=== PATIENT | female | born 1990 | race Caucasian/White ===

== ENCOUNTER → 2021-07-23 15:14 | Outpatient (BNVA) | payer MEDICAID, SELFPAY | PROVIDERS: PCP Registered Nurse Community Health; Visit Provider Surgery Vascular Surgery | DX: I83.11 Varicose veins of right lower extremity with inflammation (principal) | CPT/HCPCS: 99212 ==

== ENCOUNTER 2021-12-10 07:27 | Outpatient (REF) | payer MEDICAID, SELFPAY ==
[2021-12-10 11:27] LABS: MANUAL DIFF FLAG NO
[2021-12-10 11:39] LABS: Basophils Percent Auto 0.5 % (0-2); Eosinophils Absolute Auto 0.1 X10*3/uL (0.0-0.4); Eosinophils Percent Auto 1.5 % (0-4); Hematocrit 43.1 % (37.0-47.0); Hemoglobin 13.5 g/dl (12.0-16.0); Imm Gran Abs Auto 0.03 X10*3/uL (0.00-0.03); Imm Gran Pct Auto 0.4 % (0.0-0.4); Lymphocytes Absolute Auto 1.9 X10*3/uL (1.2-4.9); Lymphocytes Percent Auto 23.5 % (20-40); Mean Corpuscular HGB Conc 31.3 g/dl (31.0-35.0); Mean Corpuscular Hemoglobin 28.3 pg (27.0-33.0); Mean Corpuscular Volume 90.4 fL (80.0-98.0); Mean Platelet Volume 10.6 fL (9.4-12.3); Monocytes Absolute Auto 0.4 X10*3/uL (0.1-1.2); Monocytes Percent Auto 5.3 % (2-11); Neutrophils Absolute Auto 5.5 x10*3/uL (2.0-8.3); Neutrophils Percent Auto 68.8 % (45-73); Platelet Count 308 X10*3/uL (160-400); Red Blood Count 4.77 X10*6/uL (4.20-5.50); Red Cell Distribution Width 12.9 % (11.0-16.0); White Blood Count 8.1 X10*3/uL (4.8-10.8)
[2021-12-10 11:52] LABS: Alanine Aminotransferase 10 U/L (0-31); Albumin Level 3.9 g/dL (3.5-5.0); Alkaline Phosphatase 54 U/L (39-117); Anion Gap 12 (12-20); Aspartate Amino Transferase 10 U/L (5-31); Bilirubin Total 0.5 mg/dL (0.0-1.0); Blood Urea Nitrogen 12 mg/dL (9-16); Calcium 9.5 mg/dL (8.4-10.2); Carbon Dioxide 25 mmol/L (22-29); Chloride 108 mmol/L (96-108); Estimated Glomerular Filt Rate > 60; Glucose Random 103 mg/dL (60-115); Potassium 3.8 mmol/L (3.3-5.1); Sodium 141 mmol/L (135-145); Total Protein 6.3 g/dL (6.5-8.0)
[2021-12-10 12:16] LABS: Lithium 0.49 mmol/L (0.60-1.20)
[2021-12-10 12:21] LABS: Free T4 (Free Thyroxine) 0.96 ng/dL (0.71-1.85)
== END 2021-12-10 07:28 | disposition home or self-care (01) ==
LOC: HO.HMGCLDS 07:27
PROVIDERS: Visit Provider Nurse Practitioner Psychiatric/Mental Health
DX: F31.9 Bipolar disorder, unspecified (principal); Z79.899 Other long term (current) drug therapy
CPT/HCPCS: 36415; 80053; 80178; 84439; 84443; 85025

== ENCOUNTER 2022-01-23 07:05 | Outpatient (REF) | payer BC, MEDICAID, SELFPAY ==
[2022-01-23 11:15] LABS: MANUAL DIFF FLAG NO
[2022-01-23 11:20] LABS: Basophils Absolute Auto 0.1 X10*3/uL (0.0-0.2); Basophils Percent Auto 0.6 % (0-2); Eosinophils Absolute Auto 0.2 X10*3/uL (0.0-0.4); Eosinophils Percent Auto 1.8 % (0-4); Hematocrit 41.6 % (37.0-47.0); Hemoglobin 13.3 g/dl (12.0-16.0); Imm Gran Abs Auto 0.02 X10*3/uL (0.00-0.03); Imm Gran Pct Auto 0.2 % (0.0-0.4); Lymphocytes Absolute Auto 1.9 X10*3/uL (1.2-4.9); Lymphocytes Percent Auto 21.5 % (20-40); Mean Corpuscular Volume 90.8 fL (80.0-98.0); Mean Platelet Volume 10.4 fL (9.4-12.3); Monocytes Absolute Auto 0.4 X10*3/uL (0.1-1.2); Monocytes Percent Auto 4.2 % (2-11); Neutrophils Absolute Auto 6.4 x10*3/uL (2.0-8.3); Neutrophils Percent Auto 71.7 % (45-73); Platelet Count 321 X10*3/uL (160-400); Red Blood Count 4.58 X10*6/uL (4.20-5.50); Red Cell Distribution Width 13.3 % (11.0-16.0)
[2022-01-23 12:02] LABS: Lithium 0.52 mmol/L (0.60-1.20)
[2022-01-23 12:04] LABS: Alanine Aminotransferase 11 U/L (0-31); Albumin Level 3.7 g/dL (3.5-5.0); Alkaline Phosphatase 53 U/L (39-117); Anion Gap 9 (12-20); Aspartate Amino Transferase 10 U/L (5-31); Bilirubin Total 0.4 mg/dL (0.0-1.0); Blood Urea Nitrogen 7 mg/dL (9-16); Calcium 9.3 mg/dL (8.4-10.2); Carbon Dioxide 25 mmol/L (22-29); Chloride 109 mmol/L (96-108); Estimated Glomerular Filt Rate > 60; Glucose Fasting 110 mg/dL (60-99); Sodium 139 mmol/L (135-145); Total Protein 5.9 g/dL (6.5-8.0)
[2022-01-23 12:07] LABS: Free T4 (Free Thyroxine) 0.88 ng/dL (0.71-1.85); Thyroid Stimulating Hormone 1.19 uIU/mL (0.32-4.0)
== END 2022-01-23 07:06 | disposition home or self-care (01) ==
LOC: HO.HMGCLDS 07:05
PROVIDERS: Visit Provider Nurse Practitioner Psychiatric/Mental Health
DX: Z51.81 Encounter for therapeutic drug level monitoring (principal); F31.9 Bipolar disorder, unspecified; Z79.899 Other long term (current) drug therapy
CPT/HCPCS: 36415; 80053; 80178; 84439; 84443; 85025

== ENCOUNTER 2022-05-12 12:07 | Outpatient (REF) | payer BC, SELFPAY ==
--- NOTE | ~2022-05-12 | XR_ITS ---
EXAMINATION: XR LUMBOSACRAL SPINE CLINICAL INFORMATION: Pain COMPARISON: None TECHNIQUE: Three views of the lumbosacral spine. FINDINGS: The vertebral bodies and posterior elements are normal. The disc spaces are preserved and the vertebral alignment is normal. The paraspinal soft tissues are normal. XR/XR lumbar spine 2-3V IMPRESSION: Unremarkable examination.
--- NOTE | ~2022-05-12 | XR_ITS ---
EXAMINATION: XR KNEE, LEFT CLINICAL INFORMATION: Pain COMPARISON: None TECHNIQUE: Four views of the left knee. FINDINGS: Bone alignment is normal. No fracture or dislocation is seen. There is a small osteophyte at the lateral patellofemoral joint. Joint spaces are otherwise normal. There is no joint effusion. XR/XR knee LT 4V IMPRESSION: Mild degenerative changes at the patellofemoral joint.
== END 2022-05-12 12:08 | disposition home or self-care (01) ==
LOC: HO.XRAY 12:07
PROVIDERS: Visit Provider Registered Nurse Community Health
DX: M25.562 Pain in left knee (principal); M54.50 Low back pain, unspecified
CPT/HCPCS: 72100; 73564

== ENCOUNTER 2022-11-14 07:16 | Outpatient (REF) | payer BC, SELFPAY ==
[2022-11-14 11:48] LABS: Lithium 0.49 mmol/L (0.60-1.20)
== END 2022-11-14 07:17 | disposition home or self-care (01) ==
LOC: HO.HMGCLDS 07:16
PROVIDERS: PCP Registered Nurse Community Health; Visit Provider Nurse Practitioner Psychiatric/Mental Health
DX: F31.9 Bipolar disorder, unspecified (principal); Z79.899 Other long term (current) drug therapy
CPT/HCPCS: 36415; 80178

== ENCOUNTER 2023-06-24 14:56 | Outpatient (REF) | payer BC, SELFPAY ==
[2023-06-24 16:31] LABS: Estimated Average Glucose 97 mg/dL
[2023-06-24 16:38] LABS: Alanine Aminotransferase 13 U/L (0-31); Alkaline Phosphatase 82 U/L (39-117); Anion Gap 13 (12-20); Aspartate Amino Transferase 13 U/L (5-31); Bilirubin Total 0.2 mg/dL (0.0-1.0); Blood Urea Nitrogen 8 mg/dL (9-16); Calcium 9.3 mg/dL (8.4-10.2); Carbon Dioxide 26 mmol/L (22-29); Chloride 107 mmol/L (96-108); Cholesterol 230 mg/dL (<200); Estimated Glomerular Filt Rate > 60; Glucose Random 91 mg/dL (60-115); HDL Cholesterol 43 mg/dL (>40); LDL Cholesterol Calculated 160 mg/dL (<100); Potassium 3.5 mmol/L (3.3-5.1); Sodium 142 mmol/L (135-145); Total Protein 6.6 g/dL (6.5-8.0); Triglycerides 139 mg/dL (<150)
== END 2023-06-24 14:57 | disposition home or self-care (01) ==
LOC: HO.HHCL 14:56
PROVIDERS: Visit Provider General Practice
DX: E11.9 Type 2 diabetes mellitus without complications (principal)
CPT/HCPCS: 36415; 80053; 80061; 83036

== ENCOUNTER 2023-07-07 08:00 | Outpatient (REF) | payer BC, SELFPAY ==
--- NOTE | ~2023-07-07 | US_ITS ---
EXAMINATION: US LOWER EXTREMITY VENOUS (REFLUX EXAM), BILATERAL CLINICAL INDICATION: Varicose veins COMPARISON: None. TECHNIQUE: Color flow triplex imaging and compression Doppler was performed to evaluate both the deep and the superficial systems bilaterally. To evaluate the superficial system, the examination was performed in the upright position. Color-flow Doppler ultrasound and compression ultrasound were utilized. In addition, maneuvers were utilized to demonstrate reflux. FINDINGS: 1. DEEP VENOUS ULTRASOUND OF THE RIGHT LOWER EXTREMITY: Common Femoral Vein: Compressible, normal respiratory variation and augmented flow. Femoral Vein: Compressible, normal color flow and augmentation. Popliteal Vein: Compressible, normal augmentation. Deep Reflux: There is no evidence of reflux in the deep system in either the common femoral vein or the popliteal vein. There is no evidence of a Elias's cyst. 2. SUPERFICIAL ULTRASOUND WITH DOPPLER OF RIGHT LOWER EXTREMITY: GREAT SAPHENOUS VEIN: Saphenofemoral Junction: 0.8 cm; Reflux: 0 ms Proximal Thigh: 0.5 cm; Reflux: 0 ms Mid Thigh: 0.4 cm; Reflux: 2476 ms Above Knee: 0.4 cm; Reflux: 1304 ms At Knee: 0.4 cm; Reflux: 0 ms Below Knee: 0.3 cm; Reflux: 3204 ms Mid Calf: 0.3 cm; Reflux: 0 ms Ankle: 0.3 cm; Reflux: 0 ms DUPLICATED MEDIAL GREAT SAPHENOUS VEIN: Proximal: 0.4 cm; Reflux: 0 ms DUPLICATED LATERAL GREAT SAPHENOUS VEIN: Proximal: 0.5 cm; Reflux: 0 ms Distal: 0.6 cm; Reflux: 3508 ms SMALL SAPHENOUS VEIN: Proximal: 0.5 cm; Reflux: 0 ms Distal: 0.6 cm; Reflux: 3508 ms VEIN OF GIACOMINI: Size: NA Reflux: NA PERFORATORS: Location: Mid calf Size: 0.2-0.3cm Reflux: NA VARICOSITIES: Location: Numerous varicose veins in the thigh and calf all measuring over 3 mm Size: 0.3-0.7cm Reflux: almost all have reflux 1464-3384ms 3. DEEP VENOUS ULTRASOUND OF THE LEFT LOWER EXTREMITY: Common Femoral Vein: Compressible, normal respiratory variation and augmented flow. Femoral Vein: Compressible, normal color flow and augmentation. Popliteal Vein: Compressible, normal augmentation. Deep Reflux: Reflux in the common femoral vein at 3176ms. There is no evidence of a Elias's cyst. 4. SUPERFICIAL ULTRASOUND WITH DOPPLER OF LEFT LOWER EXTREMITY: GREAT SAPHENOUS VEIN: Saphenofemoral Junction: 1.2 cm; Reflux: 1888 ms Proximal Thigh: 0.8 cm; Reflux: 0 ms Mid Thigh: 0.4 cm; Reflux: 3472 ms Above Knee: 0.4 cm; Reflux: 0 ms At Knee: 0.3 cm; Reflux: 0 ms Below Knee: 0.3 cm; Reflux: 0 ms Mid Calf: 0.2 cm; Reflux: 2788 ms Ankle: 0.3 cm; Reflux: 1028 ms DUPLICATED MEDIAL GREAT SAPHENOUS VEIN: Proximal: 0.4 cm; Reflux: 0 ms DUPLICATED LATERAL GREAT SAPHENOUS VEIN: Proximal: 0.7 cm; Reflux: 3296 ms Distal: 0.6 cm; Reflux: 3284 ms SMALL SAPHENOUS VEIN: Proximal: 0.2 cm; Reflux: 0 ms Distal: 0.2 cm; Reflux: 3392 ms VEIN OF GIACOMINI: Size: NA Reflux: NA PERFORATORS: Location: Multiple calf perforators Size: 0.3 cm Reflux: 1844 ms Location: Thigh skip loader Size: 0.2 cm Reflux: NA VARICOSITIES: Location: Numerous varicose veins in the thigh and calf all measuring over 3 mm Size: 0.3-0.7cm Reflux: almost all have reflux 3220-3380ms US/US venous duplex LE BI IMPRESSION: 1. Bilateral great saphenous venous insufficiency. 2. Numerous bilateral refluxing varicose veins. 3. Reflux in the right common femoral vein.
== END 2023-07-07 08:01 | disposition home or self-care (01) ==
LOC: HO.US 08:00
PROVIDERS: PCP General Practice; Visit Provider Surgery Vascular Surgery
DX: I83.893 Varicose veins of bilateral lower extremities with other complications (principal)
CPT/HCPCS: 93970

== ENCOUNTER 2023-08-04 12:41 | Outpatient (AMB) | payer BC, SELFPAY ==
--- NOTE | 2023-08-04 12:52 | A.OFFVIS_ITS ---
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 Complaints include pain over varicosities, swelling of lower extremities, cramping, fatigue, and heaviness of the lower extremities. It has been affecting there daily activities including walking. It is noted more so in left leg. She smokes 1 cigarette daily and is a nondiabetic. She had actually seen us back in July of 2021 and had not gotten venous insufficiency testing at that time with us. Patient denies any previous venous surgery or injections. Patient denies any history of DVT/ PE. She does have a mother and grandmother that does have a history of DVT. She personally did not have a DVT. Patient denies any history of phlebitis. Trial of compression includes - [id number] They now present for vascular evaluation regarding their varicose veins. [facility] Medical History Obese GERD (gastroesophageal reflux disease) Bipolar disorder Asthma Review of Systems Const All systems reviewed & are unremarkable except as noted in HPI and below Reports no additional complaints ENT Reports Normal hearing present Card Denies chest pain, Denies chest pain at rest, Denies chest pain with activity and Denies pedal edema Resp Denies cough GI Denies abdominal pain Musc Denies abnormal gait, Denies muscle cramps and Denies radiating pain into limb Skin/Breast Denies skin ulcer and Denies wounds Neuro Reports Normal hearing present and Denies abnormal gait Psych Reports no additional complaints Physical Exam Vital Signs: BMI result Body Mass Index 49.9 Const General: cooperative, healthy appearing and comfortable Orientation/consciousness: oriented to person, oriented to place and oriented to time HEENT Head: Yes normal to inspection Neck Neck: Yes normal visual inspection Carotids: no bruits Chest Chest palpation & inspection: normal inspection of the chest Resp Effort & Inspection: normal respiratory effort and able to speak in complete sentences Auscultation: clear to auscultation bilaterally, no crackles, no rales, no rhonchi and no wheezes Cardio Rate: regular rate Rhythm: regular rhythm Heart sounds: S1 normal heart sound present and S2 normal heart sound present Bruits: no carotid bruits Peripheral pulses: Peripheral pulses 2+ throughout GI Inspection: Yes normal to inspection Skin Wounds: no wounds Hair: normal Neuro General: oriented to person, oriented to place and oriented to time Cranial nerves: Yes CN's II-XII intact bilaterally and Yes Normal hearing present Cognition (Neuro): normal cognition Motor exam (neuro): 5/5 motor strength present throughout Extrem Other: venous exam: Bilateral +2 edema with skin color changes General: No clubbing, No cyanosis and Yes edema Psych Appearance: grossly normal Mental Status: mental status grossly normal Speech and movement: Normal speech and movement present Results Reviewed Results Reviewed: Brief summary of venous insufficiency testing is as follows: right great saphenous vein: Positive right small saphenous vein: negative right accessory vein: none present left great saphenous vein: Positive left small saphenous vein: negative left accessory vein: none present Please note there is no evidence of any venous aneurysms or significant tortuosity Assessment & Plan Assessment & Plan (1) Varicose veins of left lower extremity with inflammation: Code(s): I83.12 - Varicose veins of left lower extremity with inflammation Plan: This patient has varicose veins with inflammation. They continue to be a source of discomfort for the patient. The patient has tried conservative treatment with compression, leg elevation and exercise program for over 3 months time. They have been compliant with all treatment. This has provided minimal relief for the patient. I do not anticipate this course of treatment will alter the underlying etiology. The patient has been scheduled for lower extremity venous treatment inclusive of --- left great saphenous vein Cyanoacralate ablation. Risks, benefits, and complications of this procedure has been disc ussed in detail with the patient including but not limited to bleeding, infection, and the development of a DVT. The patient has demonstrated a clear understanding and has consented. We will schedule the patient as soon as possible. Thank you for allowing us to participate in this patient's care. If there are any questions or concerns please do not hesitate to contact us. Coding Level of Care Code Est Pt Level 4 (69802) Diagnoses Varicose veins of left lower extremity with inflammation I83.12
[2023-08-04 12:58] VITALS: BMI 49.9
== END 2023-08-04 13:21 | disposition home or self-care (01) ==
PROVIDERS: PCP General Practice; Visit Provider Surgery Vascular Surgery
DX: I83.12 Varicose veins of left lower extremity with inflammation (principal)
CPT/HCPCS: 99214

== ENCOUNTER → 2023-08-04 12:41 | Outpatient (BNVA) | payer BC, SELFPAY | PROVIDERS: PCP General Practice; Visit Provider Surgery Vascular Surgery ==

== ENCOUNTER 2023-09-18 14:34 | Outpatient (REF) | payer BC, SELFPAY ==
[2023-09-18 16:43] LABS: Alanine Aminotransferase 18 U/L (0-31); Albumin Level 4.1 g/dL (3.5-5.0); Alkaline Phosphatase 75 U/L (39-117); Anion Gap 15 (12-20); Aspartate Amino Transferase 16 U/L (5-31); Bilirubin Total 0.3 mg/dL (0.0-1.0); Blood Urea Nitrogen 8 mg/dL (9-16); Calcium 9.6 mg/dL (8.4-10.2); Carbon Dioxide 27 mmol/L (22-29); Chloride 105 mmol/L (96-108); Estimated Glomerular Filt Rate > 60; Glucose Random 88 mg/dL (60-115); Potassium 3.8 mmol/L (3.3-5.1); Sodium 143 mmol/L (135-145); Total Protein 6.7 g/dL (6.5-8.0)
== END 2023-09-18 14:35 | disposition home or self-care (01) ==
LOC: HO.HHCL 14:34
PROVIDERS: Visit Provider General Practice
DX: I10 Essential (primary) hypertension (principal)
CPT/HCPCS: 36415; 80053

== ENCOUNTER 2023-10-09 07:26 | Outpatient (AMB) | payer BC, SELFPAY ==
[2023-10-09 07:35] VITALS: BMI 49.9
--- NOTE | 2023-10-09 07:35 | MHC.OFFVIS ---
Intake Vital Signs 10/09/23 07:35 Height 5 ft 4 in Weight 291 lb BMI 49.9 Intake Visit Reasons: Left GSV Venaseal Allergies No Known Allergies Allergy (Verified 10/09/23 07:36) [facility] Medical History Obese GERD (gastroesophageal reflux disease) Bipolar disorder Asthma Physical Exam Vital Signs: BMI result Body Mass Index 49.9 Office Procedures Vascular Office Procedure Details Details: Diagnosis: Left Leg varicose veins with inflammation Procedure: Endovenous Ablation of the left Great Saphenous Vein with VenaSeal Closure System Anesthesia: Local infiltration 5 cc, Estimated Blood Loss: min Specimen: none Duplex ultrasound was used to map out the insufficient saphenous vein, and access was determined and marked on the overlying skin. The depth and diameter of the vein(s) to be treated was documented. The patient was placed supine on the procedure table and the leg was prepped and draped using sterile technique. Ultasound guidance was again used to localize the access site. 1% lidocaine was injected as a local anesthetic in the subcutaneous tissues at the target location in the GSV in the lower leg. Using ultrasound guidance, access was gained at this location with the 19 gauge thin walled access needle and followed by introduction of a short guidewire, location confirmed with ultrasound. A small, 3 mm incision was made at the access site to allow for introduction and placement of the 7 Fr x7cm introducer/dilator. The dilator and guidewire were removed. The 0.035 guidewire from the VenaSeal kit was then introduced and positioned at the saphenofemoral junction using ultrasound guidance. The 80 cm 7 Fr introducer sheath/dilator was positioned 5cm from the saphenofemoral junction. The guidewire and dilator were removed, and the remaining sheath was flushed with sterile saline, with the syringe remaining in place prior to the next steps. The cyanoacrylate adhesive was precisely primed into the 5 F delivery catheter and this catheter/syringe combination was attached within the dispenser gun. This assembly was introduced through the 7F sheath and positioned 5 cm caudal of the saphenofemoral junction under ultrasound guidance. The steps from the IFU were followed for dispensing amounts, locations and compression times, 2 aliquots proximally with 3 minutes of compression, and 1 aliquot every 3 cm distally with 30 sec of compression along the course of the vessel. Following the last injection and compression sequence, the catheter and introducer sheath were pulled out from the access site. Hemostasis was achieved with manual compression and an adhesive bandage was applied to the incision. Ultrasound confirmed complete coaptation and closure of the treated segments of the GSV, and the absence of any DVT at the saphenofemoral junction. Treatment time was approximately 5 minutes and the vein length treated was 35 cm. The drapes were removed and the patient cleaned and prepared for discharge. Post op ultrasound check is scheduled for 48-72 hours and the patient was given written post-op instructions. 28180 - Endoven Ther Chem Adhes 1st All charges added?: Procedure code (CPT) selection complete Assessment & Plan Assessment & Plan (1) Varicose veins of left lower extremity with inflammation: Code(s): I83.12 - Varicose veins of left lower extremity with inflammation Plan: See op note Coding Level of Care Code Procedure Only Diagnoses Varicose veins of left lower extremity with inflammation I83.12 CPT Codes Details - Vascular 3: 98340 - Endoven Ther Chem Adhes 1st ([id number])
== END 2023-10-09 08:30 | disposition home or self-care (01) ==
PROVIDERS: PCP General Practice; Visit Provider Surgery Vascular Surgery
DX: I83.12 Varicose veins of left lower extremity with inflammation (principal)
CPT/HCPCS: 36482

== ENCOUNTER → 2023-10-09 07:26 | Outpatient (BNVA) | payer BC, SELFPAY | PROVIDERS: PCP General Practice; Visit Provider Surgery Vascular Surgery | DX: I83.12 Varicose veins of left lower extremity with inflammation (principal) | CPT/HCPCS: 36482 ==

== ENCOUNTER 2023-10-12 14:09 | Outpatient (REF) | payer BC, SELFPAY ==
--- NOTE | ~2023-10-12 | US_ITS ---
EXAMINATION: TRIPLEX SCANNING OF LEFT LOWER EXTREMITY; SUPERFICIAL ULTRASOUND WITH DOPPLER OF LEFT LOWER EXTREMITY CLINICAL INFORMATION: Status post Venaseal of the left great saphenous vein COMPARISON: 07/07/2023. TECHNIQUE: Color flow triplex imaging and compression Doppler were performed as well as superficial ultrasound with Doppler. FINDINGS: LEFT LOWER EXTREMITY DEEP VENOUS SYSTEM: Respiratory variation, normal compression and augmented flow are noted throughout the lower extremity. The visualized common femoral vein, femoral vein, profunda femoral vein, popliteal vein and the calf veins show no evidence of deep venous thrombosis. There is no evidence of Elias's cyst. SUPERFICIAL VENOUS SYSTEM: The great saphenous vein is occluded from the access site to 4.4 before the saphenofemoral junction. There is no extension of thrombus into the deep system. US/US venous duplex LE LT IMPRESSION: 1. No evidence of DVT. 2. Excellent appearance status post ablation of the left great saphenous vein.
== END 2023-10-12 14:10 | disposition home or self-care (01) ==
LOC: HO.US 14:09
PROVIDERS: PCP General Practice; Visit Provider Surgery Vascular Surgery
DX: M79.605 Pain in left leg (principal)
CPT/HCPCS: 93971

== ENCOUNTER 2023-10-22 12:39 | Outpatient (AMB) | payer BC, SELFPAY ==
[2023-10-22 12:54] VITALS: BMI 49.9
--- NOTE | 2023-10-22 12:54 | MHC.OFFVIS ---
Intake Vital Signs 10/22/23 12:54 Height 5 ft 4 in Weight 291 lb BMI 49.9 Intake Visit Reasons: 2 week follow up Left GSV Venaseal 10/09/23 Intake Note: 2 week follow up Left GSV Venaseal 10/09/23, pt states that her leg feels the same as it did pre-procedure but a little less itchy. Swelling has decreased, but states she does still have some large painful VV. Pt states that Right LE has a lot more large VV but wasn't as painful as the left LE Accompanied by: Self / Same As Patient Allergies No Known Allergies Allergy (Verified 10/22/23 12:59) HPI 2 week follow up Left GSV Venaseal 10/09/23 HPI Details Very pleasant 32-year-old female presents for follow-up status post left great saphenous vein ablation. She does report an improvement of that left lower extremity. She is concerned about her right lower extremity which continues to be swollen and a source of discomfort as well. She also has these large lateral thigh varicosities as well. She now presents for routine postprocedure follow-up. Of note postprocedure ultrasound was negative for DVT. [facility] Medical History (Updated 10/22/23 @ 13:47 by Mookie Mcgovern MD) Obese GERD (gastroesophageal reflux disease) Bipolar disorder Asthma Surgical History (Updated 10/22/23 @ 13:01 by WINTER Vick) Status post ablation of incompetent vein using laser (10/09/23) Social History (Updated 10/22/23 @ 13:01 by WINTER Vick) Patient Tobacco Use Status: Current someday Tobacco user Cigarettes Per Day: 1 Review of Systems Const Reports as per HPI ENT Reports no additional complaints Card Denies chest pain, Denies chest pain at rest and Denies chest pain with activity Resp Denies chest congestion and Denies cough GI Reports no additional complaints Musc Details: pain over varicosities, aching of lower extremities, swelling, cramping, heaviness and tiredness, itching Denies abnormal gait Skin/Breast Reports pruritus and Denies wounds Neuro Reports no additional complaints and Denies abnormal gait Psych Denies no additional complaints Physical Exam Vital Signs: BMI result Body Mass Index 49.9 Const General: cooperative, healthy appearing and comfortable Orientation/consciousness: oriented to person, oriented to place and oriented to time Neck Carotids: no bruits Chest Chest palpation & inspection: normal inspection of the chest and normal palpation of entire chest wall Resp Effort & Inspection: normal respiratory effort and able to speak in complete sentences Cardio Rate: regular rate Heart sounds: S1 normal heart sound present and S2 normal heart sound present Peripheral pulses: Peripheral pulses 2+ throughout GI Inspection: Yes normal to inspection Skin Other: +2 edema, large rope-like varicosities greater than 4 mm bilateral lateral thigh CEAP Classification C4 - skin color changes Ep - Etiology Primary As - superficial veins P - reflux General skin exam: dry skin Neuro General: oriented to person, oriented to place and oriented to time Extrem Right lower extremity: full ROM, normal capillary refill and edema Left lower extremity: full ROM, normal capillary refill and edema Psych Mental Status: mental status grossly normal Results Reviewed Results Reviewed: Brief summary of venous insufficiency testing is as follows: right great saphenous vein: Positive right small saphenous vein: negative right accessory vein: none present left great saphenous vein: Ablated left small saphenous vein: negative left accessory vein: none present Please note there is no evidence of any venous aneurysms or significant tortuosity Assessment & Plan Assessment & Plan (1) Varicose veins of left lower extremity with inflammation: Comment: 10/09/2023 left great saphenous vein Cyanoacralate ablation Code(s): I83.12 - Varicose veins of left lower extremity with inflammation Plan: Stable (2) Varicose veins of right lower extremity with inflammation: Code(s): I83.11 - Varicose veins of right lower extremity with inflammation Plan: This patient has varicose veins with inflammation. They continue to be a source of discomfort for the patient. The patient has tried conservative treatment with compression, leg elevation and exercise program for over 3 months time. They have been compliant with all treatment. This has provided minimal relief for the patient. I do not anticipate this course of treatment will alter the underlying etiology. The patient has been scheduled for lower extremity venous treatment inclusive of --- right great saphenous vein Cyanoacralate ablation. Risks, benefits, and complications of this procedure has been discussed in detail with the patient including but not limited to bleeding, infection, and the development of a DVT. The patient has demonstrated a clear understanding and has consented. We will schedule the patient as soon as possible. Thank you for allowing us to participate in this patient's care. If there are any questions or concerns please do not hesitate to contact us. Coding Level of Care Code Est Pt Level 4 (52369) Diagnoses Varicose veins of left lower extremity with inflammation I83.12 Varicose veins of right lower extremity with inflammation I83.11
== END 2023-10-22 13:34 | disposition home or self-care (01) ==
PROVIDERS: PCP General Practice; Visit Provider Surgery Vascular Surgery
DX: I83.12 Varicose veins of left lower extremity with inflammation (principal); I83.11 Varicose veins of right lower extremity with inflammation
CPT/HCPCS: 99214

== ENCOUNTER → 2023-10-22 12:39 | Outpatient (BNVA) | payer BC, SELFPAY | PROVIDERS: PCP General Practice; Visit Provider Surgery Vascular Surgery ==

== ENCOUNTER 2023-11-20 08:19 | Outpatient (AMB) | payer BC, SELFPAY ==
[2023-11-20 08:50] VITALS: BMI 49.9
--- NOTE | 2023-11-20 08:50 | MHC.OFFVIS ---
Intake Vital Signs 11/20/23 08:50 Height 5 ft 4 in Weight 291 lb BMI 49.9 Intake Visit Reasons: Right GSV Venaseal Accompanied by: Self / Same As Patient Allergies No Known Allergies Allergy (Verified 11/20/23 08:51) [facility] Medical History (Updated 11/20/23 @ 09:42 by Mookie Mcgovern MD) Obese GERD (gastroesophageal reflux disease) Bipolar disorder Asthma Surgical History (Updated 10/22/23 @ 13:01 by WINTER Vick) Status post ablation of incompetent vein using laser (10/09/23) Social History (Updated 10/22/23 @ 13:01 by WINTER Vick) Patient Tobacco Use Status: Current someday Tobacco user Cigarettes Per Day: 1 Physical Exam Vital Signs: BMI result Body Mass Index 49.9 Office Procedures Vascular Office Procedure Details Details: Diagnosis: Right Leg varicose veins with inflammation Procedure: Endovenous Ablation of the right Great Saphenous Vein with VenaSeal Closure System Anesthesia: Local infiltration 5 cc, Estimated Blood Loss: min Specimen: none Duplex ultrasound was used to map out the insufficient saphenous vein, and access was determined and marked on the overlying skin. The depth and diameter of the vein(s) to be treated was documented. The patient was placed supine on the procedure table and the leg was prepped and draped using sterile technique. Ultasound guidance was again used to localize the access site. 1% lidocaine was injected as a local anesthetic in the subcutaneous tissues at the target location in the GSV in the lower leg. Using ultrasound guidance, access was gained at this location with the 19 gauge thin walled access needle and followed by introduction of a short guidewire, location confirmed with ultrasound. A small, 3 mm incision was made at the access site to allow for introduction and placement of the 7 Fr x7cm introducer/dilator. The dilator and guidewire were removed. The 0.035 guidewire from the VenaSeal kit was then introduced and positioned at the saphenofemoral junction using ultrasound guidance. The 80 cm 7 Fr introducer sheath/dilator was positioned 5cm from the saphenofemoral junction. The guidewire and dilator were removed, and the remaining sheath was flushed with sterile saline, with the syringe remaining in place prior to the next steps. The cyanoacrylate adhesive was precisely primed into the 5 F delivery catheter and this catheter/syringe combination was attached within the dispenser gun. This assembly was introduced through the 7F sheath and positioned 5 cm caudal of the saphenofemoral junction under ultrasound guidance. The steps from the IFU were followed for dispensing amounts, locations and compression times, 2 aliquots proximally with 3 minutes of compression, and 1 aliquot every 3 cm distally with 30 sec of compression along the course of the vessel. Following the last injection and compression sequence, the catheter and introducer sheath were pulled out from the access site. Hemostasis was achieved with manual compression and an adhesive bandage was applied to the incision. Ultrasound confirmed complete coaptation and closure of the treated segments of the GSV, and the absence of any DVT at the saphenofemoral junction. Treatment time was approximately 7 minutes and the vein length treated was 45 cm. The drapes were removed and the patient cleaned and prepared for discharge. Post op ultrasound check is scheduled for 48-72 hours and the patient was given written post-op instructions. 98136 - Endoven Ther Chem Adhes 1st All charges added?: Procedure code (CPT) selection complete Assessment & Plan Assessment & Plan (1) Varicose veins of right lower extremity with inflammation: Comment: 11/20/2023 - right great saphenous vein Cyanoacralate ablation Code(s): I83.11 - Varicose veins of right lower extremity with inflammation Plan: See op note Coding Level of Care Code Procedure Only Diagnoses Varicose veins of right lower extremity with inflammation I83.11 CPT Codes Details - Vascular 3: 69643 - Endoven Ther Chem Adhes 1st ([id number])
== END 2023-11-20 09:47 | disposition home or self-care (01) ==
PROVIDERS: PCP General Practice; Visit Provider Surgery Vascular Surgery
DX: I83.11 Varicose veins of right lower extremity with inflammation (principal)
CPT/HCPCS: 36482

== ENCOUNTER → 2023-11-20 08:19 | Outpatient (BNVA) | payer BC, SELFPAY | PROVIDERS: PCP General Practice; Visit Provider Surgery Vascular Surgery | DX: I83.11 Varicose veins of right lower extremity with inflammation (principal) | CPT/HCPCS: 36482 ==

== ENCOUNTER 2023-11-23 14:08 | Outpatient (REF) | payer BC, SELFPAY ==
--- NOTE | ~2023-11-23 | US_ITS ---
EXAMINATION: US VENOUS ULTRASOUND WITH DOPPLER LOWER EXTREMITY, RIGHT CLINICAL INFORMATION: Pain in right leg. Evaluate for DVT right lower extremity after right great saphenous vein RFA 11/20/22. COMPARISON: Venous insufficiency ultrasound 07/07/2023. TECHNIQUE: Ultrasound of the deep veins is performed from the hip to the calf with compression sonography and color and pulse Doppler assessment. Spectral analysis with color-flow imaging is performed. FINDINGS: There is normal venous compression and respiratory variation and augmented flow. The visualized common femoral vein, superficial femoral vein, profunda femoral vein, popliteal vein, and the trifurcation region shows no evidence of deep venous thrombosis. Postablation changes are seen in the great saphenous vein up to 4.2 cm from the SFJ. US/US venous duplex LE RT IMPRESSION: No DVT demonstrated in the right lower extremity. Postablation changes great saphenous vein as above.
== END 2023-11-23 14:09 | disposition home or self-care (01) ==
LOC: HO.US 14:08
PROVIDERS: PCP General Practice; Visit Provider Surgery Vascular Surgery
DX: M79.604 Pain in right leg (principal)
CPT/HCPCS: 93971

== ENCOUNTER 2023-12-03 14:06 | Outpatient (AMB) | payer BC, SELFPAY ==
--- NOTE | 2023-12-03 14:10 | MHC.OFFVIS ---
Intake Vital Signs 12/03/23 14:11 Height 5 ft 4 in Weight 291 lb BMI 49.9 Intake Visit Reasons: 2 week follow up Right GSV Venaseal 11/20/23 Intake Note: 2 week follow up Right GSV Venaseal 11/20/23. Right Leg feels good. Pt also has Hx of Left GSV Venaseal 10/09/23, feels good. Pt does still have large VV on outer thigh. Accompanied by: Self / Same As Patient Allergies No Known Allergies Allergy (Verified 12/03/23 14:14) HPI 2 week follow up Right GSV Venaseal 11/20/23 HPI Details Very pleasant 33-year-old female presents for follow-up status post right great saphenous vein ablation. Reports bilateral lower extremities appear to be doing significantly better since the ablation is. She does have bilateral thigh varicosities left greater than right. They continue to be a source of pain and discomfort for her. She now presents for follow-up. Of note postprocedure ultrasound was negative for DVT. [facility] Medical History Obese GERD (gastroesophageal reflux disease) Bipolar disorder Asthma Surgical History (Updated 12/03/23 @ 14:15 by WINTER Vick) S/P gastric sleeve procedure Status post ablation of incompetent vein using laser (10/09/23) Family History Mother Bipolar 1 disorder Father Type 2 diabetes mellitus Social History (Updated 12/03/23 @ 14:15 by WINTER Vick) Patient Tobacco Use Status: Former Tobacco user Cigarettes Per Day: 1 Review of Systems Const Reports as per HPI ENT Reports no additional complaints Card Denies chest pain, Denies chest pain at rest and Denies chest pain with activity Resp Denies chest congestion and Denies cough GI Reports no additional complaints Musc Details: pain over varicosities, aching of lower extremities, swelling, cramping, heaviness and tiredness, itching Denies abnormal gait Skin/Breast Reports pruritus and Denies wounds Neuro Reports no additional complaints and Denies abnormal gait Psych Denies no additional complaints Physical Exam Vital Signs: BMI result Body Mass Index 49.9 Const General: cooperative, healthy appearing and comfortable Orientation/consciousness: oriented to person, oriented to place and oriented to time Neck Carotids: no bruits Chest Chest palpation & inspection: normal inspection of the chest and normal palpation of entire chest wall Resp Effort & Inspection: normal respiratory effort and able to speak in complete sentences Cardio Rate: regular rate Heart sounds: S1 normal heart sound present and S2 normal heart sound present Peripheral pulses: Peripheral pulses 2+ throughout GI Inspection: Yes normal to inspection Skin Other: +2 edema, large rope-like varicosities greater than 4 mm bilateral lateral thighs CEAP Classification C4 - skin color changes Ep - Etiology Primary As - superficial veins P - reflux General skin exam: dry skin Neuro General: oriented to person, oriented to place and oriented to time Extrem Right lower extremity: full ROM, normal capillary refill and edema Left lower extremity: full ROM, normal capillary refill and edema Psych Mental Status: mental status grossly normal Assessment & Plan Assessment & Plan (1) Varicose veins of right lower extremity with inflammation: Comment: 11/20/2023 - right great saphenous vein Cyanoacralate ablation Code(s): I83.11 - Varicose veins of right lower extremity with inflammation Plan: Will need future microphlebectomy lateral thigh varicosities. (2) Varicose veins of left lower extremity with inflammation: Comment: 10/09/2023 left great saphenous vein Cyanoacralate ablation Code(s): I83.12 - Varicose veins of left lower extremity with inflammation Plan: This patient has varicose veins with inflammation. They continue to be a source of discomfort for the patient. The patient has tried conservative treatment with compression, leg elevation and exercise program for over 3 months time. They have been compliant with all treatment. This has provided minimal relief for the patient. I do not anticipate this course of treatment will alter the underlying etiology. The patient has been scheduled for lower extremity venous treatment inclusive of --- left leg microphlebectomy. Risks, benefits, and complications of this procedure has been discussed in detail with the patient including but not limited to bleeding, infection, and the development of a DVT. The patient has demonstrated a clear understanding and has consented. We will schedule the patient as soon as possible. Thank you for allowing us to participate in this patient's care. If there are any questions or concerns please do not hesitate to contact us. Coding Level of Care Code Est Pt Level 4 (99080) Diagnoses Varicose veins of right lower extremity with inflammation I83.11 Varicose veins of left lower extremity with inflammation I83.12
[2023-12-03 14:11] VITALS: BMI 49.9
== END 2023-12-03 14:32 | disposition home or self-care (01) ==
PROVIDERS: PCP General Practice; Visit Provider Surgery Vascular Surgery
DX: I83.11 Varicose veins of right lower extremity with inflammation (principal); I83.12 Varicose veins of left lower extremity with inflammation
CPT/HCPCS: 99214

== ENCOUNTER → 2023-12-03 14:06 | Outpatient (BNVA) | payer BC, SELFPAY | PROVIDERS: PCP General Practice; Visit Provider Surgery Vascular Surgery | DX: I83.11 Varicose veins of right lower extremity with inflammation (principal); I83.12 Varicose veins of left lower extremity with inflammation; Z98.890 Other specified postprocedural states ==

== ENCOUNTER 2023-12-18 07:48 | Outpatient (AMB) | payer BC, SELFPAY ==
--- NOTE | 2023-12-18 07:58 | MHC.OFFVISWM ---
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 Allergies No Known Allergies Allergy (Verified 12/18/23 08:01) Medication List - Last Reconciled 12/18/23 by Andrew Mo MD albuterol (refill) 90 mcg/actuation mcg inhalation aripiprazole (Abilify) 10 mg PO DAILY cholecalciferol (vitamin D3) 50 mcg PO DAILY clonazepam (Klonopin) 0.5 mg PO QDAY hydrochlorothiazide 25 mg PO DAILY lamotrigine 150 mg PO DAILY omeprazole magnesium (Prilosec OTC) 20 mg PO DAILY HPI 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 HPI Details Start time: 7.48am, End time: 8.48am ?I spent 50 minutes speaking with the patient on the phone plus an additional 10 minutes reviewing and updating records for a total of 60 minutes HPI Comments History of Present Illness Details Has developed severe GERD after the sleeve gastrectomy Previous weight loss: Pre-LSG weight: 365lbs, lowest: 240lbs) Wakes up: 5am, Sleeps: 9pm Breakfast: skips Lunch: 1pm (Falafel with cous cous, pasta) Dinner: 6pm (pasta with meatballs, pizza) Snacks: 10am (chocolate), 7-8pm (cake) Exercise: stepper at home Fluids: Coffee (2 cups/day with cream and sugar), tea: none, soda: none, juice: 2/wk, ETOH: 1/month PFSH Medical History (Updated 12/18/23 @ 08:10 by Andrew Mo MD) DJD (degenerative joint disease) Hypertension Sleep apnea treated with continuous positive airway pressure (CPAP) Anxiety Morbid obesity Obese GERD (gastroesophageal reflux disease) Bipolar disorder Asthma Surgical History (Updated 12/03/23 @ 14:15 by WINTER Vick) S/P gastric sleeve procedure Status post ablation of incompetent vein using laser (10/09/23) Family History Mother Bipolar 1 disorder Father Type 2 diabetes mellitus Social History (Updated 12/03/23 @ 14:15 by WINTER Vick) Patient Tobacco Use Status: Former Tobacco user Cigarettes Per Day: 1 Assessment & Plan Assessment & Plan (1) Morbid obesity: Code(s): E66.01 - Morbid (severe) obesity due to excess calories Plan: 1.? Plan for lap sleeve gastrectomy. If diaphragmatic or ventral hernias are present at time of surgery, these will be repaired laparoscopically as well. Risks and complications were discussed in detail including possible conversion to an open procedure, anastomotic leak, bleeding requiring transfusion, small bowel obstruction, , DVT and pulmonary embolism, cardiac, or pulmonary complications, as intermediate project manager complications such as anastomotic ulcer, insufficient weight loss and vitamin deficiencies. I emphasized the importance of close follow-up, adherence to instructions and good communication. 2. Nutritional counseling. Start with one CELEBRATE REBUILD protein (buy at [facility]'s gift shop) shake (TWO scoops in 8oz low fat unsweetened almond milk) at 6am-8am, 1 protein bar (CELEBRATE protein bars, buy at [facility]'s [employer]) at 9am-11am, another CELEBRATE REBUILD protein shake (TWO scoops in 8oz low fat unsweetened almond milk, another Celebrate bar at 12pm-2pm and 3pm-5pm, dinner at 6pm (5 forks of protein and 5 forks of salad/vegetables) AND another HALF protein bar, if needed after dinner at 8pm-9pm. So you do 2 protein shakes, 3.5 protein bars and one meal per day. Meal to include lean meat (beef, fish, pork, turkey, chicken), or eritrean yogurt, or egg whites, or beans with a salad with olive oil and fruits (berries, pears, apples, kiwi). Avoid salt, breads, potatoes, rice, pasta, desserts. 3. Each shake would be drunk slowly, like coffee in a period of 2 hours. 4. Cut each bar in 4 pieces and eat each piece in 30min ?to make each bar last 2 hours. 5. I emphasized the importance of measuring accurately the food portion and measure it when serving the food in plate 6. The meal portions include 5 full-size forks of meat and 5 full-size forks of salad. You always eat the meat portion but you can replace up to 5 forks for salad/vegetables with rice, potatoes or pasta, or a fruit ?if you like. The less you do it the better weight loss will be. 7. One full-size fork is what it can be scooped on the fork without falling aside and not what can be bit with the fork. Use regular forks like those you find in a typical restaurant. 8.? Please send me weight measurements as soon as possible and then once a week. Always include your diet and exercise plan. Alternatively come weekly at the office for weight checks and send me the measurements. 9. Start the Stepper daily for 300 calories per day. Goal is to burn 2000 calories per week on exercise, which means either 300 calories daily, or 400 calories 5 days per week, or 500 calories 4 days per week, or 650 calories 3 days per week. 10. The best choice would be to purchase a stationary bike, elliptical or treadmill at home that can track calories. Let me know if you do so I can give you an exercise plan. 11.?It is important of avoiding and for at least 18 months postoperatively and has been discussed at the infosession. 12. Goal is to lose at least 1.5-2lbs per week 13. Goal to lose 10% of your weight before surgery, which is about 29lbs. Ultimate weight goal: 265lbs before surgery 14. Please follow the diet plan exactly without any change. If you don't like something about the plan or you feel hungry you need to communicate with me so I can help you revise the plan. You should not change the plan yourself. Telehealth Telehealth Location of provider rendering services: practice address Location of patient: address on file Patient Identification confirmed using: Name, : Yes Telehealth method: voice only Patient verbally consented to treatment: Yes Patient verbally consented to billing insurance company: Yes Patient informed of any privacy concerns related to visit: Yes Minutes spent on Phone/Video with Pt.: 60 Coding Level of Care Code Tele [facility] Pt Level 5 (09500) Diagnoses Morbid obesity E66.01 Time Spent (min) 60
[2023-12-18 08:22] VITALS: BMI 50.5
== END 2023-12-18 08:49 | disposition home or self-care (01) ==
LOC: HO.HBS 07:48
PROVIDERS: PCP General Practice; Visit Provider Surgery
DX: E66.01 Morbid (severe) obesity due to excess calories (principal); Z68.43 Body mass index [BMI] 50.0-59.9, adult; Z90.3 Acquired absence of stomach [part of]; Z98.84 Bariatric surgery status
CPT/HCPCS: 99443

== ENCOUNTER → 2023-12-18 07:48 | Outpatient (BNVA) | payer BC, SELFPAY | PROVIDERS: PCP General Practice; Visit Provider Surgery ==

== ENCOUNTER 2024-01-15 08:24 | Outpatient (AMB) | payer BC, SELFPAY ==
[2024-01-15 08:51] VITALS: BMI 50.5
--- NOTE | 2024-01-15 08:51 | MHC.OFFVIS ---
Intake Vital Signs 01/15/24 08:51 Height 5 ft 4 in Weight 294 lb BMI 50.5 Intake Visit Reasons: Left Microphlebectomy Accompanied by: Self / Same As Patient Allergies No Known Allergies Allergy (Verified 01/15/24 08:52) [facility] Medical History DJD (degenerative joint disease) Hypertension Sleep apnea treated with continuous positive airway pressure (CPAP) Anxiety Morbid obesity Obese GERD (gastroesophageal reflux disease) Bipolar disorder Asthma Surgical History S/P gastric sleeve procedure Status post ablation of incompetent vein using laser (10/09/23) Family History Mother Bipolar 1 disorder Father Type 2 diabetes mellitus Social History Patient Tobacco Use Status: Former Tobacco user Cigarettes Per Day: 1 Physical Exam Vital Signs: BMI result Body Mass Index 50.5 Office Procedures Vascular Office Procedure Details Details: Diagnosis: Left Leg varicose veins with inflammation Procedure: Left leg Microphlebectomy Anesthesia: Local Infiltration 20 cc, Tumescent: 0 cc. Varicose veins were marked in the standing position on the left leg and the patient was then placed in the supine position. The left lower extremity was prepared and draped to allow knee flexion in the sterile field. The patient had large superficial varicose veins with significant symptoms of pain. It was therefore determined to perform microphlebectomies of the clusters of varicose veins. The patient had bulging varicose veins which were previously marked in the standing position. A small stab incision was made longitudinally directly overlying the varicose vein in the calf and the varicose vein was grasped with a hemostat aided by a vein hook. It was then dissected as far proximally and distally as possible and avulsed. A total of 22 stab incisions were made and the procedure of stab phlebectomies was repeated 22 times. Hemostasis was checked and stab incision sites were closed with steri-strips and sterile dressing was given with gauze and krilex wrap followed by an kiesha bandage. There were no complications and blood loss was minimal. Post-Op instructions were given and a follow-up appointment was recommended. [id number] - Stab Phlebectomy >20 All charges added?: Procedure code (CPT) selection complete Assessment & Plan Assessment & Plan (1) Varicose veins of left lower extremity with inflammation: Comment: 10/09/2023 left great saphenous vein Cyanoacralate ablation 01/15/2024 left leg microphlebectomy Code(s): I83.12 - Varicose veins of left lower extremity with inflammation Plan: See op note Coding Level of Care Code Procedure Only Diagnoses Varicose veins of left lower extremity with inflammation I83.12 CPT Codes Details - Vascular 6: 24422 - Stab Phlebectomy >20 ([id number])
== END 2024-01-15 09:57 | disposition home or self-care (01) ==
PROVIDERS: PCP General Practice; Visit Provider Surgery Vascular Surgery
DX: I83.12 Varicose veins of left lower extremity with inflammation (principal)
CPT/HCPCS: 37766

== ENCOUNTER → 2024-01-15 08:24 | Outpatient (BNVA) | payer BC, SELFPAY | PROVIDERS: PCP General Practice; Visit Provider Surgery Vascular Surgery | DX: I83.12 Varicose veins of left lower extremity with inflammation (principal) | CPT/HCPCS: 37766 ==

== ENCOUNTER 2024-02-09 15:36 | Outpatient (AMB) | payer BC, SELFPAY ==
--- NOTE | 2024-02-09 15:49 | MHC.OFFVIS ---
Intake Visit Reasons: 2 week follow up Left Micro 01/15/24 Intake Note: Patient presents for follow up s/p left micro performed on 01/15/24. Patient states she has bruising but no pain. Accompanied by: Self / Same As Patient Allergies No Known Allergies Allergy (Verified 02/09/24 15:50) [facility] HPI 2 week follow up Left Micro 01/15/24: Details: Very pleasant 33-year-old female presents for follow-up status post left lower extremity microphlebectomy. Doing extremely well postoperatively. Some mild phlebitis in the thigh but other than that no real complaints. She is now concerned about her right lower extremity. Has been a source of pain and discomfort for her. [facility] Medical History DJD (degenerative joint disease) Hypertension Sleep apnea treated with continuous positive airway pressure (CPAP) Anxiety Morbid obesity Obese GERD (gastroesophageal reflux disease) Bipolar disorder Asthma Surgical History S/P gastric sleeve procedure Status post ablation of incompetent vein using laser (10/09/23) Family History Mother Bipolar 1 disorder Father Type 2 diabetes mellitus Social History Patient Tobacco Use Status: Former Tobacco user Cigarettes Per Day: 1 Review of Systems Const Reports as per HPI ENT Reports no additional complaints Card Denies chest pain, Denies chest pain at rest and Denies chest pain with activity Resp Denies chest congestion and Denies cough GI Reports no additional complaints Musc Details: pain over varicosities, aching of lower extremities, swelling, cramping, heaviness and tiredness, itching Denies abnormal gait Skin/Breast Reports pruritus and Denies wounds Neuro Reports no additional complaints and Denies abnormal gait Psych Denies no additional complaints Physical Exam Const General: cooperative, healthy appearing and comfortable Orientation/consciousness: oriented to person, oriented to place and oriented to time Neck Carotids: no bruits Chest Chest palpation & inspection: normal inspection of the chest and normal palpation of entire chest wall Resp Effort & Inspection: normal respiratory effort and able to speak in complete sentences Cardio Rate: regular rate Heart sounds: S1 normal heart sound present and S2 normal heart sound present Peripheral pulses: Peripheral pulses 2+ throughout GI Inspection: Yes normal to inspection Skin Other: +2 edema, large rope-like varicosities greater than 4 mm right thigh and calf CEAP Classification C4 - skin color changes Ep - Etiology Primary As - superficial veins P - reflux General skin exam: dry skin Neuro General: oriented to person, oriented to place and oriented to time Extrem Right lower extremity: full ROM, normal capillary refill and edema Left lower extremity: full ROM, normal capillary refill and edema Psych Mental Status: mental status grossly normal Assessment & Plan Assessment & Plan (1) Varicose veins of left lower extremity with inflammation: Comment: 10/09/2023 left great saphenous vein Cyanoacralate ablation 01/15/2024 left leg microphlebectomy Code(s): I83.12 - Varicose veins of left lower extremity with inflammation Category: Medical Plan: Doing well status post left leg microphlebectomy. Will treat right leg (2) Varicose veins of right lower extremity with inflammation: Comment: 11/20/2023 - right great saphenous vein Cyanoacralate ablation Code(s): I83.11 - Varicose veins of right lower extremity with inflammation Category: Medical Plan: This patient has varicose veins with inflammation. They continue to be a source of discomfort for the patient. The patient has tried conservative treatment with compression, leg elevation and exercise program for over 3 months time. They have been compliant with all treatment. This has provided minimal relief for the patient. I do not anticipate this course of treatment will alter the underlying etiology. The patient has been scheduled for lower extremity venous treatment inclusive of --- right leg microphlebectomy. Risks, benefits, and complications of this procedure has been discussed in detail with the patient including but not limited to bleeding, infection, and the development of a DVT. The patient has demonstrated a clear understanding and has consented. We will schedule the patient as soon as possible. Thank you for allowing us to participate in this patient's care. If there are any questions or concerns please do not hesitate to contact us. Coding Level of Care Code Est Pt Level 4 (96236) Diagnoses Varicose veins of left lower extremity with inflammation I83.12 Varicose veins of right lower extremity with inflammation I83.11
== END 2024-02-09 16:05 | disposition home or self-care (01) ==
PROVIDERS: PCP General Practice; Visit Provider Surgery Vascular Surgery
DX: I83.12 Varicose veins of left lower extremity with inflammation (principal); I83.11 Varicose veins of right lower extremity with inflammation
CPT/HCPCS: 99214

== ENCOUNTER → 2024-02-09 15:36 | Outpatient (BNVA) | payer BC, SELFPAY | PROVIDERS: PCP General Practice; Visit Provider Surgery Vascular Surgery ==

== ENCOUNTER 2024-09-16 07:24 | Outpatient (AMB) | payer BC, SELFPAY ==
[2024-09-16 08:50] VITALS: BMI 50.5
--- NOTE | 2024-09-16 08:50 | MHC.OFFVIS ---
Vital Signs 09/16/24 08:50 Height 5 ft 4 in Weight 294 lb BMI 50.5 Intake Visit Reasons: Right Leg Accompanied by: Self / Same As Patient Allergies No Known Allergies Allergy (Verified 09/16/24 08:51) PFSH Medical History DJD (degenerative joint disease) Hypertension Sleep apnea treated with continuous positive airway pressure (CPAP) Anxiety Morbid obesity Obese GERD (gastroesophageal reflux disease) Bipolar disorder Asthma Surgical History S/P gastric sleeve procedure Status post ablation of incompetent vein using laser (10/09/23) Family History Mother Bipolar 1 disorder Father Type 2 diabetes mellitus Social History Patient Tobacco Use Status: Former Tobacco user Cigarettes Per Day: 1 Physical Exam Vital Signs: BMI result Body Mass Index 50.5 Office Procedures Vascular Office Procedure Details Details: Diagnosis: Right Leg varicose veins with inflammation Procedure: Right leg Microphlebectomy Anesthesia: Local Infiltration 20 cc, Tumescent: 0 cc. Varicose veins were marked in the standing position on the right leg and the patient was then placed in the supine position. The right lower extremity was prepared and draped to allow knee flexion in the sterile field. The patient had large superficial varicose veins with significant symptoms of pain. It was therefore determined to perform microphlebectomies of the clusters of varicose veins. The patient had bulging varicose veins which were previously marked in the standing position. A small stab incision was made longitudinally directly overlying the varicose vein in the calf and the varicose vein was grasped with a hemostat aided by a vein hook. It was then dissected as far proximally and distally as possible and avulsed. A total of 21 stab incisions were made and the procedure of stab phlebectomies was repeated 21 times. Hemostasis was checked and stab incision sites were closed with steri-strips and sterile dressing was given with gauze and krilex wrap followed by an kiesha bandage. There were no complications and blood loss was minimal. Post-Op instructions were given and a follow-up appointment was recommended. [id number] - Stab Phlebectomy >20 All charges added?: Procedure code (CPT) selection complete Assessment & Plan Assessment & Plan (1) Varicose veins of right lower extremity with inflammation: Comment: 11/20/2023 - right great saphenous vein Cyanoacralate ablation 09/16/2024 - right leg microphlebectomy Code(s): I83.11 - Varicose veins of right lower extremity with inflammation Category: Medical Plan: See op note Coding Level of Care Code Procedure Only Diagnoses Varicose veins of right lower extremity with inflammation I83.11 CPT Codes Details - Vascular 6: 72055 - Stab Phlebectomy >20 ([id number])
== END 2024-09-16 08:47 | disposition home or self-care (01) ==
PROVIDERS: PCP General Practice; Visit Provider Surgery Vascular Surgery
DX: I83.11 Varicose veins of right lower extremity with inflammation (principal)
CPT/HCPCS: 37766

== ENCOUNTER 2024-10-19 15:36 | Outpatient (REF) | payer BC, SELFPAY ==
--- NOTE | ~2024-10-19 | US_ITS ---
EXAMINATION: US HEAD AND NECK SOFT TISSUE CLINICAL INFORMATION: Right posterior neck mass.. COMPARISON: None available. TECHNIQUE: Linear transducer ramirez-scale and color Doppler examination with attention to the posterior neck suboccipital region. FINDINGS: Submitted for interpretation on October 20, 2024. There is a 1.5 x 1.3 x 0.8 cm isoechoic to slightly hyperechoic ovoid shaped abnormality beneath the skin of the upper midline neck without flow on color Doppler interrogation. US/US soft tiss head and/or neck IMPRESSION: 1.5 x 1.3 x 0.8 cm soft tissue lesion. Probable lipoma.. Electronically signed by: Oliver Torres MD 10/20/2024 07:46 AM EST
== END 2024-10-19 15:37 | disposition home or self-care (01) ==
LOC: HO.US 15:36
PROVIDERS: PCP General Practice; Visit Provider General Practice
DX: R22.1 Localized swelling, mass and lump, neck (principal)
CPT/HCPCS: 76536

== ENCOUNTER → 2024-10-19 15:42 | Outpatient (BNV) | payer BC, SELFPAY | PROVIDERS: PCP General Practice; Visit Provider Radiology Diagnostic Radiology | DX: M54.2 Cervicalgia (principal) | CPT/HCPCS: 76536 ==

== ENCOUNTER 2024-11-02 08:02 | Outpatient (AMB) | payer BC, SELFPAY ==
[2024-11-02 08:31] VITALS: BP 106/64; BMI 52.7
--- NOTE | 2024-11-02 08:31 | A.OFFVIS_ITS ---
Vital Signs 11/02/24 08:31 Height 5 ft 4 in Weight 307 lb BMI 52.7 BP 106/64 Blood Pressure Location Lt brachial Position Sitting Intake Visit Reasons: ENP-DONG Allergies lurasidone [From Latuda] Allergy (Unknown, Verified 11/02/24 08:35) self harm Medication List - Last Reconciled 11/02/24 by Dexter Orozco PA-C albuterol (refill) 90 mcg/actuation mcg inhalation aripiprazole (Abilify) 10 mg PO DAILY cholecalciferol (vitamin D3) 50 mcg PO DAILY clonazepam (Klonopin) 0.5 mg PO QDAY lamotrigine 150 mg PO TID omeprazole magnesium (Prilosec OTC) 20 mg PO DAILY HPI Comments Details: 33 year old female R. handed, referred to us for sleep evaluation, per PCP. She goes to bed at 8pm, and gets up at 5am with 3-4 bathroom breaks and scrolls on her social med. acct. In 2017 she had Bariatric surgery, and would like to be evaluated again. She had an ablation saphenous vein d/t risks of DVTS. She sleeps on her r. side mainly. RLS: Denies symptoms. She has headaches sometimes, but tolerable without meds. She is not a smoker, alcohol use occasional. Her mood is good, she has BPD, and she sees her therapist once a month, she takes lamotrigine 100mg TID, Abilify 10mg daily, and klonipin daily (PRN). Memory is good at baseline. Diet and lifestyle could improve and is trying to go see weight management again as she is trying to conceive. 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 COUNTS INCLUDE 234 BEDS AT THE [facility] Medical History DJD (degenerative joint disease) Hypertension Sleep apnea treated with continuous positive airway pressure (CPAP) Anxiety Morbid obesity Obese GERD (gastroesophageal reflux disease) Bipolar disorder Asthma Surgical History S/P gastric sleeve procedure Status post ablation of incompetent vein using laser (10/09/23) Family History Mother Bipolar 1 disorder Father Type 2 diabetes mellitus Social History Patient Tobacco Use Status: Former Tobacco user Cigarettes Per Day: 1 Female Reproductive History Menstrual Other: Not on BC as she is trying to conceive. Review of Systems Const All systems reviewed & are unremarkable except as noted in HPI and below Physical Exam Vital Signs: Last Vital Signs BP 106/64 11/02/24 08:31 BMI result Body Mass Index 52.7 Const General: cooperative, comfortable and no acute distress Nutritional Appearance: obese (BMI is 52) Orientation/consciousness: patient oriented x3 HEENT Head: Yes normal to inspection Face and sinus: Yes normal facial exam and Yes face symmetric Throat: Yes other (Mallmpti score of 4) Eyes Pupils: Equal, round and reactive pupils present Neck Neck: Yes full ROM Resp Effort & Inspection: normal respiratory effort and able to speak in complete sentences Neuro General: patient oriented x3 and moves all extremities Cranial nerves: Yes CN's II-XII intact bilaterally, Yes Facial sensation intact/muscles of mastication intact, Yes Equal, round and reactive pupils present, Yes Normal accommodation reflex present, Yes Bilaterally intact EOM present, Yes Nystagmus not present, Yes Normal facial strength present, Yes Midline tongue present, Yes Ability to bilaterally rotate head present and Yes Ability to bilaterally elevate shoulders present Cognition (Neuro): normal cognition Gait exam (Neuro): Normal gait present Motor exam (neuro): 5/5 motor strength present throughout and Normal motor muscle tone present throughout Deep tendon reflexes (DTR's): Right triceps reflex intensity grade: 2+, Left triceps reflex intensity grade: 2+, Rt Biceps (C5, C6): 2+, Left biceps reflex intensity grade: 2+, Right brachioradialis reflex intensity grade: 2+, Left brachioradialis reflex intensity grade: 2+, Right patellar reflex intensity grade: 2+ and Left patellar reflex intensity grade: 2+ Psych Appearance: grossly normal Mental Status: mental status grossly normal Speech and movement: Normal speech and movement present Affect: normal affect Attitude: cooperative Thought process: Normal thought process present Thought content: Normal thought content present Insight: Good insight present (Psych) Judgement: Good judgement present (Psych) Results Reviewed Results Reviewed: Notes Bariatric - Notes DVT Saphenous Vein ablation 2021 Labs? Assessment & Plan Assessment & Plan (1) Fatigue due to sleep pattern disturbance: Code(s): R53.83 - Other fatigue; G47.9 - Sleep disorder, unspecified Category: Medical Plan Excessive daytime fatigue: Home Sleep Study to assess for sleep apnea. Will follow up with patient after study to discuss results and appropriate treatments. Patient Education: Sleep Hygiene, dark, cool environment, no devices in bed, no fluids 2 hours prior to bed, no caffeine 6 hours prior to bed. BMI is elevated to 52 Encouraged patient to f/u with Weight management, she did lose >100lbs after bariatric surgery in 2017. Personal Care Assistant/Comfort Advisor referral if interested for dietary caloric intake and meal prep/ planning. DASH Diet for Hypertension, per [employer] #1 modifiable risk factor to prevent CV events is blood pressure control. Refer to: https://www.heart.org /en/healthy-living/healthy-eating/eat-smart/nutrition-basics/bvc-ngie-pfs-lifest yle-recommendations. Mediterranean Diet- Cardiovascular Risk reduction, weight loss. Blood Glucose Monitoring, A1C control for prevention of diabetes, nephropathy, neuropathy, retinopathy. Labs: B12/ TSH/ Vit D/ Folate MMA and Homocysteine F/U in 3 months Orders: Orders RT home sleep study Today G47.9 - Sleep disorder, unspecified, R53.83 - Other fatigue Homocysteine Today G47.9 - Sleep disorder, unspecified, R53.83 - Other fatigue TSH reflex Free T4 Today F09 - Unspecified mental disorder due to known physiological condition Vitamin B12 and Folate Today G47.9 - Sleep disorder, unspecified, R53.83 - Other fatigue Vitamin D 25-OH Total Today G47.9 - Sleep disorder, unspecified, R53.83 - Other fatigue Methylmalonic Acid Today G47.9 - Sleep disorder, unspecified, R53.83 - Other fatigue Coding Level of Care Code New Pt Level 3 (38839) Diagnoses Fatigue due to sleep pattern disturbance R53.83; G47.9 Time Spent (min) 30 Comment Baseline evaluation Sleep Questionnaire Difficulty falling asleep: Yes Difficulty staying asleep?: Yes Number of arousals: 3-4 Snoring: Yes Witnessed apneas: Yes Gasping arousals: Yes Nocturia: No GERD: Yes Vivid dreams: Yes Acting out dreams: No Abnormal behavior in sleep: No Abnormal movements in sleep: Yes Morning headaches: Yes Excessive daytime sleepiness: Yes Daytime naps: Yes Restless legs: No Hallucinations: No Sleep paralysis: No Drop attacks: No Sleep Study: Yes CPAP: Yes
== END 2024-11-02 08:58 | disposition home or self-care (01) ==
PROVIDERS: PCP General Practice; Visit Provider Physician Assistant Medical
DX: R53.83 Other fatigue (principal); G47.9 Sleep disorder, unspecified
CPT/HCPCS: 99203

== ENCOUNTER 2024-11-02 08:02 | Outpatient (REF) | payer BC, SELFPAY ==
--- OUTSIDE RECORDS SUMMARY | 2024-11-02 10:34 | XMS_ITS | Encounter Summary ---
Author Organization [employer] Address [address] [place] [address] Care Team Providers Care Heel Sprayer Name Role Phone Annia Benedict MD Primary Care Provider [phone] Reason for Visit * Reason Comments Med Change Request Encounter Details Date Type Department Care Team ([facility] st Contact Info) Description 07/18/2024 Refill [facility] MED[facility]INE [address] [place], [place] [phone] Annia Benedict MD [address] [place], [place] [phone] Severe obesity (CMS/HCC); Essential hypertension; Pre-conception counseling Social History Tobacco Use Types Packs/Day Years Used Date Smoking Tobacco: Every Day Cigarettes Smokeless Tobacco: Never Comments:1 a day Alcohol Use Standard Drinks/Week Comments Yes 0 (1 standard drink = 0.6 oz pur e alcohol) socially Housing Stability Answer Date Recorded What is your housing situation today? I do not have housing (Staying with others, in a hotel, in a correction, living outside on the street, on a beach, in a car, or in a park 07/14/[address] you li ve. Do you have problems with any of the following? None of the above 07/14/2023 Food Insecurity Answer Date Recorded Within the past 12 months, y ou worried that your food would run out before you got money to buy more: Never True 08/02/2023 Within the past 12 months,th e food you bought just didn't last and you didn't have enough money to get more: Never True Transportation Answer Date Recorded In the past 12 months, has l ack of transportation kept you from medical appts, meetings, work or from getting things needed for daily living? Yes, it has kept me from medical appointments or getting medications. 07/14/2023 Utilities Answer Date Recorded In the past 12 months, has t he electric, gas, oil or water company threatened to shut off services in your home? No 08/02/2023 Depression Answer Date Recorded Patient Health Questionnaire-2 Score 2 06/24/2023 Comments Unknown Sex and Gender Information Value Date Recorded Sex Assigned at Female 08/04/2022 10:38 AM EDT Legal Sex Female 10:38 AM EDT Gender Identity Female 08/04/2022 10:38 AM EDT Sexual Orientation Straight 08/04/2022 10 :38 AM EDT documented as of this encounter Plan of Treatment Not on file documented as of this encounter Visit Diagnoses Diagnosis Severe obesity (CMS/HCC) Morbid obesity Essential hypertension Unspecified essential hypertension Pre-conception counseling Other procreative management counseling and advice documented in this encounter Care Teams Heel Sprayer Relationship Specialty Start Date End Date Annia Benedict MD [address] [place] [id number] PCP - General Family Medicine 06/02/22 documented as of this encounter
--- OUTSIDE RECORDS SUMMARY | 2024-11-02 10:34 | XMS_ITS | Encounter Summary ---
Author Organization [employer] Address [address] [place] [address] Care Team Providers Care Ballistics Expert Forensic Name Role Phone Annia Benedict MD Primary Care Provider [phone] Encounter Details Date Type Department Care Team (Late st Contact Info) Description 10/20/2024 Telephone [facility] MED[facility]INE [address] [place], [place] [phone] Teodora Bernal, RN [address] [place], [place] [phone] Social History Tobacco Use Types Packs/Day Years Used Date Smoking Tobacco: Every Day Cigarettes Smokeless Tobacco: Never Comments:1 a day Alcohol Use Standard Drinks/Week Comments Yes 0 (1 standard drink = 0.6 oz pur e alcohol) socially Housing Stability Answer Date Recorded What is your housing situation today? I have tayematthew ahumada 09/21/[address] you li ve. Do you have problems with any of the following? None of the above 09/21/2024 Food Insecurity Answer Date Recorded Within the past 12 months, y ou worried that your food would run out before you got money to buy more: Never True 09/21/2024 Within the past 12 months,th e food you bought just didn't last and you didn't have enough money to get more: Never True Transportation Answer Date Recorded In the past 12 months, has l ack of transportation kept you from medical appts, meetings, work or from getting things needed for daily living? No 09/21/2024 Utilities Answer Date Recorded In the past 12 months, has t he electric, gas, oil or water company threatened to shut off services in your home? No 09/21/2024 Depression Answer Date Recorded Patient Health Questionnaire-2 Score 2 06/24/2023 Internet Access Answer Date Recorded Internet Access Q1 Yes 09/21/2024 Internet Access Q2 Not on file 09/21/2024 Comments No Sex and Gender Information Value Date Recorded Sex Assigned at Female 08/04/2022 10:38 AM EDT Legal Sex Female 10:38 AM EDT Gender Identity Female 08/04/2022 10:38 AM EDT Sexual Orientation Straight 08/04/2022 10 :38 AM EDT documented as of this encounter Miscellaneous Notes * Telephone Encounter - Teodora Bernal RN - 10/20/2024 4:22 PM EST T/C placed to pt. Advised of message from pcp re: likely lipoma. Pt verbalized understanding and states she will leave it alone. Pt agrees to call if she changes her mind. * Telephone Encounter - Teodora Bernal RN - 10/20/2024 4:21 PM EST ----- Message from Annia Benedict MD sent at 10/20/2024 3:44 PM EST ----- Please let patient know mass in neck read as likely lipoma, which is a benign collection of fat cells. If she wants to talk about getting it removed, I can send her to general surgery, otherwise fineto leave it alone documented in this encounter Plan of Treatment Not on file documented as of this encounter Visit Diagnoses Not on filedocumented in this encounter Care Teams Ballistics Expert Forensic Relationship Specialty Start Date End Date Annia Benedict MD [address] [place] [id number] PCP - General Family Medicine 06/02/22 documented as of this encounter
--- OUTSIDE RECORDS SUMMARY | 2024-11-02 10:34 | XMS_ITS | Encounter Summary ---
Author Organization [employer] Address [address] [place] [address] Care Team Providers Care Dot Etcher Apprentice Name Role Phone Annia Benedict MD Primary Care Provider [phone] Reason for Visit * Reason Onset Date Comments Internal Referral 10/26/2024 Encounter Details Date Type Department Care Team ([facility] st Contact Info) Description 10/26/2024 Telephone [facility] MEDICINE [address] [place], [place] [phone] Patricia Ramirez MA Internal Referral Social History Tobacco Use Types Packs/Day Years Used Date Smoking Tobacco: Every Day Cigarettes Smokeless Tobacco: Never Comments:1 a day Alcohol Use Standard Drinks/Week Comments Yes 0 (1 standard drink = 0.6 oz pur e alcohol) socially Housing Stability Answer Date Recorded What is your housing situation today? I have taye ahumada 09/21/[address] you [...] encounter Miscellaneous Notes * Telephone Encounter - Patricia Ramirez MA - 10/26/2024 10:45 AM EST T/c to pt to book her for a pap smear 30min no answer lvm. documented in this encounter Plan of Treatment Not on file documented as of this encounter Visit Diagnoses Not on filedocumented in this encounter Care Teams Dot Etcher Apprentice Relationship Specialty Start Date End Date Annia Benedict MD [address] [place] [phone] PCP - General Family Medicine 06/02/22 documented as of this encounter
--- OUTSIDE RECORDS SUMMARY | 2024-11-02 10:35 | XMS_ITS | Encounter Summary ---
Author Organization [employer] Address [address] [place] [address] Care Team Providers Care Occ Therapy Asst Name Role Phone Annia Benedict MD Primary Care Provider [phone] Reason for Visit * Reason Comments Blood Pressure Check Encounter Details Date Type Department Care Team (Latest Contact Info) Description 10/31/2024 9:30 AM EST Clinical Support [facility] MEDICINE [address] [place], [place] [phone] Marie Story, RN [address] [place], [place] [phone] Essential hypertension Social History Tobacco Use Types Packs/Day Years [...] AM EDT documented as of this encounter Last Filed Vital Signs Vital Sign Reading Time Taken Comments Blood Pressure 134/76 10/31/2024 9:38 AM EST Pulse 67 10/31/2024 9:38 AM EST Temperature - - Respiratory Rate 18 10/31/2024 9:38 AM EST Oxygen Saturation 98% 10/31/2024 9:38 AM EST Inhaled Oxygen Concentration - - Weight - - Height - - Body Mass Index - - documented in this encounter Progress Notes * Marie Story RN - 10/31/2024 9:30 AM EST S: Pt here for BP check nurse visit. At last appointment 09/30/24, pt's BP noted to be 142/88. Recommendations made on that day were to start nifedipine 30mg XL and stop hydrochlorothiazide (d/t initiating IVF process). Pt is currently taking nifedipine 30mg XL daily. Today, pt denies any blurred vision, shortness of breath, chest pain, dizziness, or headaches. Pt reports compliance with BP medication regimen, confirms that BP medications were taken last night around 8pm (patient takes medication at night time). Patient denies smoking. O: Left Arm BP 134/76, Pulse 67, RR 18/min and SpO2 98%. Heart tones regular, lungs clear bilaterally, no edema noted, skin warm pink and dry. Does not monitor BP at home. A: Compliance with BP medication regimen BP at goal of <140/90 Reinforcement of Lifestyle modification including low sodium diet and exercise. P: Consulted with provider (Dr. Benedict) regarding BP findings. Orders at this time are to continuecurrent medication regimen. Pt advised to continue taking meds as directed and follow a low fat/sodium diet and exercise as tolerated. Pt to f/u with PCP as needed. Pt agrees with plan and verbalizedunderstanding. Marie Story RN documented in this encounter Plan of Treatment Not on file documented as of this encounter Visit Diagnoses Diagnosis Essential hypertension Unspecified essential hypertension documented in this encounter Care Teams Occ Therapy Asst Relationship Specialty Start Date End Date Annia Benedict MD [address] [place] [address] PCP - General Family Medicine 06/02/22 documented as of this encounter
--- OUTSIDE RECORDS SUMMARY | 2024-11-02 10:35 | XMS_ITS | Clinical Summary ---
Author Organization [employer] Address [address] [place] [address] [address] [place] [address] Care Team Providers Care Sheep Rancher Name Role Phone Annia Benedict MD Primary Care Provider [phone] Allergies Active Allergy Reactions Criticality Noted Date Comments Lurasidone 10/19/2017 Other reaction(s): Other (See Comments) Suicidal Other 07/02/2016 Medications Ventolin HFA 108 (90 Base) MCG/ACT inhaler INHALE 1 PUFF BY MOUTH EVERY 4 HOURS NEEDED 3 Active ARIPiprazole (Abilify) 10 MG tabletIndication s:Bipolar disorder in full remission, most recent episode unspecified type (CMS/HCC) 3 Active Azelastine HCl 137 MCG/SPRAY solution USE 2 SPRAYS IN EACH NOSTRIL TWICE A DAY FOR 10 DAYS 3 Active clonazePAM (KlonoPIN) 0.5 MG tabletIndication s:Bipolar disorder in full remission, most recent episode unspecified type (CMS/HCC) TAKE 1 TABLET BY MOUTH TWICE A DAY NEEDED ANXIETY, IRRITABILITY, INSOMNIA 3 Active lamoTRIgine (LaMICtal) 100 MG tabletIndication s:Bipolar disorder in full remission, most recent episode unspecified type (CMS/HCC) Take 1 tablet by mouth 3 times daily. 3 Active cholecalciferol (Vitamin D-3) 50 MCG (1999 UT) capsule Take 1 capsule (50 mcg) by mouth in the morning. 90 capsule 3 3 Active omeprazole (PriLOSEC) [address] capsule TAKE 1 CAPSULE (20 MG) BY MOUTH IN THE MORNING 90 capsule 3 4 Active Semaglutide-Weig ht Management (Wegovy) 0.25 MG/0.5ML solution auto-injectorInd ications:Severe obesity (CMS/HCC),Essent ial hypertension,Pre -conception counseling Inject 0.25 mg under the skin 1 (one) time per week. 0.5 mL 11 Active NIFEdipine XL (Procardia XL) 30 MG 24 hr tablet Take 1 tablet (30 mg) by mouth Once per day. Do not crush, chew, or split. 90 tablet 3 4 09/30/20 Active Active Problems Problem Noted Date Diagnosed Date Pre-conception counseling 07/08/2024 Essential hypertension 09/23/2023 Assessment & Plan (10/06/2024 3:35 PM EST): Normal kidney and liver function today Normal exam BP consistently > 140/90 Start Nifedipine 30mg ER (chose this for safety in ) Stop hydrochlorothiazide 25mg daily We will titrate Nifedipine to goal BP < 140/90 Assessment & Plan (09/23/2023 10:40 AM EST): Normal kidney and liver function today Normal exam BP consistently > 140/90 Add Nifedipine 30mg ER (chose this for safety in ) Continue hydrochlorothiazide 25mg daily If she decides to pursue or finds out that she is , to let me know immediately so we can alter her BP meds Severe obesity 09/18/2023 09/18/2023 History of elevated glucose 06/26/2023 Varicose veins of bilateral lower extremities wi th pain 06/26/2023 Assessment & Plan (06/26/2023 8:53 AM EDT): Refer to vascular Acute suppurative otitis media 06/26/2023 Assessment & Plan (06/26/2023 8:54 AM EDT): Amox 7days BID Family planning, BCP ( control pills) initial prescription 06/26/2023 Assessment & Plan (06/26/2023 8:56 AM EDT): Not desiring before wedding No migraines, no BP, no FH of DVT, OK to use combination OCP Bipolar disorder 10/08/2021 Assessment & Plan (06/26/2023 8:55 AM EDT): Continue management per psych Mild intermittent asthma 10/08/2021 S/P laparoscopic sleeve gastrectomy 05/02/2019 Depression with anxiety 04/13/2019 Asthma 11/29/2018 Hypercholesterolemia without hypertriglyceridemi a 10/12/2018 Iron deficiency 10/12/2018 Tobacco abuse, 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 Iron deficiency anemia 07/16/2016 Irritable bowel syndrome without diarrhea 2015 Obstructive sleep apnea syndrome 07/16/2016 Osteoarthritis of multiple joints 07/16/2016 Encounters Date Type Department Care Team Description 10/31/2024 9:30 AM EST Clinical Support [address] [address] Marie Story, RN Essential hypertension 10/31/2024 Travel 10/26/[address] [address] Patricia Ramirez MA Internal Referral 10/20/2024 Telephone [facility] [address] [place] [address] Teodora Bernal RN 09/30/2024 2:45 PM EST Office Visit [address] [address] Annia Benedict MD Essential hypertension (Primary Dx); History of elevated glucose; Neck mass; Obstructive sleep apnea; Screening for cervical cancer; Bipolar disorder in full remission, most recent episode unspecified type (CMS/HCC); Mild intermittent asthma without complication; Obstructive sleep apnea syndrome; Varicose veins of bilateral lower extremities with pain; Severe obesity (CMS/HCC) 09/30/2024 Travel 09/21/2024 Patient Outreach [facility] [address] [place] [phone] Annia Benedict MD Pre-visit Planning (SDOH screening negative and tobacco screening negative) 08/02/[address] [address] Annia Benedict MD Prior Authorization from Last 3 Months Immunizations Name Administration Dates Next Due Pneumococcal Conjugate PCV 20 06/24/2023 Tdap 04/11/2021 Social History Tobacco Use Types Packs/Day Years Used Date Smoking Tobacco: Every Day Cigarettes Smokeless Tobacco: Never Tobacco Cessation:Ready to Q uit: Not Asked; Counseling Given: Not Answered Comments:1 a day Alcohol Use Standard Drinks/Week [...] Orientation Straight 08/04/2022 10 :38 AM EDT Last Filed Vital Signs Vital Sign Reading Time Taken Comments Blood Pressure 134/76 10/31/2024 9:38 AM EST Pulse 67 10/31/2024 9:38 AM EST Temperature 36.6 ??C (97.8 ??F) 09/30/2024 3:09 PM ES T Respiratory Rate 18 10/31/2024 9:38 AM EST Oxygen Saturation 98% 10/31/2024 9:38 AM EST Inhaled Oxygen Concentration - - Weight 140 kg (308 lb) 09/30/2024 3:09 PM EST Height 162.6 cm (5' 4 ) 09/30/2024 3:09 PM EST Body Mass Index 52.87 09/30/2024 3:09 PM EST Plan of Treatment Health Maintenance Due Date Last Done Comments HIV Screening 1990 Family Planning (PISQ) 2003 Hepatitis C Screening 2006 Hepatitis A Vaccines (1 of 2 - Risk 2-dose series) 2007 Hepatitis B Vaccines (1 of 3 - 19+ 3-dose series) 2007 Pap Smear 2009 Cervical Cancer Screening 2018 HPV/Cotest 2018 COVID-19 Vaccine ( season) 2024 09/06/2022, 08/30/2021, 12/17/2020, Additional history exists Influenza Vaccine (#1) 2024 Depression Screening 06/24/2024 06/24/2023, 06/24/20 SDOH Screening 09/21/2025 09/21/2024 Alcohol/Substance Use Screening 09/30/2025 09/30/2024 Tobacco Screening 10/06/2025 10/06/2024 Lipid Panel 06/24/2028 06/24/2023, 04/11/2021 DTaP/Tdap/Td Vaccines (2 - Td or Tdap) 04/11/2031 04/11/2021 Zoster Vaccines (1 of 2) 2038 RSV Patients and Patients Aged 60 years or older (1 - 1-dose 75+ series) 2063 Pneumococcal Vaccine: Pediatrics (0 to 5 Years) and At-Risk Patients (6 to 49) Years) Completed 06/24/2023 HIB Vaccines Aged Out No longer eligi ble based on patient's age to complete this topic HPV Vaccines Aged Out No longer eligi ble based on patient's age to complete this topic IPV Vaccines Aged Out No longer eligi ble based on patient's age to complete this topic Meningococcal Vaccine Aged Out No francesco adelaida eligible based on patient's age to complete this topic RSV under 20 months Aged Out No longe r eligible based on patient's age to complete this topic Rotavirus Vaccines Aged Out No longer eligible based on patient's age to complete this topic Procedures Procedure Name Priority Date/Time Associated Diagnosis Comments US HEAD NECK SOFT TISSUE Routine 10/19/2024 3:42 PM EST Neck mass POCT GLYCATED HEMOGLOBIN, TOTAL Routine 09/30/2024 3:59 PM EST History of elevated glucose LIPID PANEL, STANDARD Routine 06/24/2023 3:01 PM EDT History of elevated glucose from Last 3 Months or Most Recently Relevant to Health Maintenance Results * US Head Neck Soft Tissue (10/19/2024 3:42 PM EST) Anatomical Region Laterality Modality Head, Neck Ultrasound 10/19/2024 3:42 PM EST Narrative 10/20/2024 7:49 AM EST ? [facility] ?[address] ?[place] [address] ? Ultrasound Report ? Signed ? Patient: Azalia Wren ?MR#: [id number] ?? [id number] ? : 1990 ?Acct:[id number] ? Age/Sex: 33 / F ?ADM Date: 10/19/24 ? Loc: HO.US ? Attending Dr: Annia Benedict MD ? Ordering Physician: Annia Benedict ?? Date of Service: 10/19/24 ?? Procedure(s): US soft tiss head and/or neck ?? Accession Number(s): [id number] ? cc: Annia Benedict ? EXAMINATION: ?? US HEAD AND NECK SOFT TISSUE ? CLINICAL INFORMATION: ?? Right posterior neck mass.. ? COMPARISON: ?? None available. ? TECHNIQUE: ?? Linear transducer ramirez-scale and color Doppler examination with ?? attention to the posterior neck suboccipital region. ? FINDINGS: ?? Submitted for interpretation on October 20, 2024. ? There is a 1.5 x 1.3 x 0.8 cm isoechoic to slightly hyperechoic ovoid ?? shaped abnormality beneath the skin of the upper midline neck without ?? flow on color Doppler interrogation. ? US/US soft tiss head and/or neck ?? IMPRESSION: ?? 1.5 x 1.3 x 0.8 cm soft tissue lesion. Probable lipoma.. ? Electronically signed by: ??Oliver Torres MD ??10/20/2024 07:46 AM ?? EST RP ? Dictated By: ?Oliver Goldberg MD ? Signed By: ?<Electronically signed by Oliver Huston MD in OV> ? 10/20/24 0746 ? DD/ 1542 ? TD/TT: 10/19/24 1544 ? Console Operator: ? Procedure Note Donotlorriter, Image - 10/20/[address] [address] Ultrasound Report Signed Patient: Azalia Wren LMR#: [id number] : 1990Acct:[id number] Age/Sex: 33 / FADM Date: 10/19/24 Loc: .US Attending Dr: Annia Benedict MD Ordering Physician: Annia Benedict Date of Service: 10/19/24 Procedure(s): US soft tiss head and/or neck Accession Number(s): [id number] cc: Annia Benedict EXAMINATION: US HEAD AND NECK SOFT TISSUE CLINICAL INFORMATION: Right posterior neck mass.. COMPARISON: None available. TECHNIQUE: Linear transducer ramirez-scale and color Doppler examination with attention to the posterior neck suboccipital region. FINDINGS: Submitted for interpretation on October 20, 2024. There is a 1.5 x 1.3 x 0.8 cm isoechoic to slightly hyperechoic ovoid shaped abnormality beneath the skin of the upper midline neck without flow on color Doppler interrogation. US/US soft tiss head and/or neck IMPRESSION: 1.5 x 1.3 x 0.8 cm soft tissue lesion. Probable lipoma.. Electronically signed by: Oliver Torres MD 10/20/2024 07:46 AM EST Dictated By: Oliver Goldberg MD Signed By: <Electronically signed by Oliver Huston MDin OV> 10/20/24 0746 DD/ 1542 TD/TT: 10/19/241543 Console Operator: Annia Benedict MD IMG US PROCEDURES Edited Resul t - Final * POCT HGB A1C (09/30/2024 3:59 PM EST) Hemoglobin A1C 5.3 4.0 - 6.0 % QC Media Lot # [id number] Lot# Expiration Date Blood 09/30/2024 3:59 PM EST Annia Benedict MD POINT OF CARE TEST ENTER/EDIT ORDERABLES Final Result * (ABNORMAL) Lipid Panel, Standard (06/24/2023 3:01 PM EDT) Triglycerides 139 <150 mg/dL [facility] Comment:Desirable Triglyceri de: less than 150 mg/dLBorderline High Triglyceride 150-199 mg/dLHigh Triglyceride: 200-499 mg/dLVery High Triglyceride: greater than or equal to 5OO mg/dL Cholesterol 230(H) <200 mg/dL [facility] Comment:Desirable Cholestero l: less than 200 mg/dLBorderline High Cholesterol: 200-239 mg/dLHigh Cholesterol: greater than 239 mg/dL LDL Cholesterol Calculated 160(H) <100 mg/dL [facility] Comment:Desirable LDL: less than 100 mg/dLNear Optimal/Above Optimal LDL: 110- 129 mg/dLBorderline High LDL: 130-159 mg/dLHigh LDL: 160-189 mg/dLVery High LDL: greater than or equal to 190 mg/dL HDL Cholesterol 43 >40 mg/dL [facility] Comment:Desirable HDL: great er than 40 mg/dL Note: This HDL assay may give artificially low results in patients with liver disease. Blood Venous blood specimen / Unknown 06/24/2023 3:01 PM EDT 06/24/2023 4:11 PM EDT Annia Benedict MD LAB BLOOD ORDERABLES Final Res ult [facility] [address] [place] [phone] from Last 3 Months or Most Recently Relevant to Health Maintenance Insurance BC[employer] HMO Care Teams Sheep Rancher Relationship Specialty Start Date End Date Annia Benedict MD [address] [place] [phone] PCP - General Family Medicine 06/02/22
--- OUTSIDE RECORDS SUMMARY | 2024-11-02 10:35 | XMS_ITS | Encounter Summary ---
Author Organization [employer] Address [address] [place] [address] Care Team Providers Care Frame Sample And Pattern Supervisor Name Role Phone Annia Benedict MD Primary Care Provider [phone] Encounter Details Date Type Department Care Team (Latest Contact Info) Description 10/31/2024 Travel Social History Tobacco Use Types Packs/Day Years Used Date Smoking Tobacco: Every Day Cigarettes Smokeless Tobacco: Never Comments:1 a day Alcohol Use Standard Drinks/Week Comments Yes 0 (1 standard drink = 0.6 oz pur e alcohol) socially Housing Stability Answer Date Recorded What is your housing situation today? I have taye brandyn 09/21/[address] you li [...] on filedocumented in this encounter Care Teams Frame Sample And Pattern Supervisor Relationship Specialty Start Date End Date Annia Benedict MD [address] [place] [phone] PCP - General Family Medicine 06/02/22 documented as of this encounter
--- OUTSIDE RECORDS SUMMARY | 2024-11-02 10:35 | XMS_ITS | Encounter Summary ---
Author Organization [employer] Address [address] [place] [address] Care Team Providers Care Hearing And Speech Assistant Name Role Phone Annia Benedict MD Primary Care Provider [phone] Encounter Details Date Type Department Care Team (Late st Contact Info) Description 09/21/2023 Orders Only [facility] [address] [place], [place] [phone] Annia Benedict MD [address] [place], [place] [phone] Essential hypertension (Primary Dx) Social History Tobacco Use Types Packs/Day Years Used Date Smoking Tobacco: Every Day Cigarettes Smokeless Tobacco: Never Comments:1 a day Alcohol Use Standard Drinks/Week Comments Yes 0 (1 standard drink = 0.6 oz pur e alcohol) socially Housing Stability Answer Date Recorded What is your housing situation today? I do not have housing (Staying with others, in a hotel, in a group home, living outside on the street, on a [...] on file documented as of this encounter Procedures Procedure Name Priority Date/Time Associated Diagnosis Comments US VENOUS DUPLEX LE LT Routine 10/12/2023 3:00 PM EST documented in this encounter Results * US VENOUS DUPLEX LE LT (10/12/2023 3:00 PM EST) Anatomical Region Laterality Modality Abdomen Ultrasound 10/12/2023 3:00 PM EST Narrative 10/13/2023 4:51 PM EST ? [facility] ?[address] ?[place] [address] ? Ultrasound Report ? Signed ? Patient: Azalia Wren ?MR#: [id number] ?? [id number] ? : 1990 ?Acct:[id number] ? Age/Sex: 32 / F ?ADM Date: 10/12/23 ? Loc: HO.US ? Attending Dr: Mookie Mcgovern MD ? Ordering Physician: Mookie Mcgovern MD ?? Date of Service: 10/12/23 ?? Procedure(s): US venous duplex LE LT ?? Accession Number(s): [id number] ? cc: Annia Benedict; Mookie Mcgovern MD ? EXAMINATION: ?? TRIPLEX SCANNING OF LEFT LOWER EXTREMITY; SUPERFICIAL ULTRASOUND WITH ?? DOPPLER OF LEFT LOWER EXTREMITY ? CLINICAL INFORMATION: ?? Status post Venaseal of the left great saphenous vein ? COMPARISON: ?? 07/07/2023. ? TECHNIQUE: ?? Color flow triplex imaging and compression Doppler were performed as ?? well as superficial ultrasound with Doppler. ? FINDINGS: ? LEFT LOWER EXTREMITY ? DEEP VENOUS SYSTEM: ?? Respiratory variation, normal compression and augmented flow are noted ?? throughout the lower extremity. The visualized common femoral vein, ?? femoral vein, profunda femoral vein, popliteal vein and the calf veins ?? show no evidence of deep venous thrombosis. There is no evidence of ?? Elias's cyst. ? SUPERFICIAL VENOUS SYSTEM: ?? The great saphenous vein is occluded from the access site to 4.4 before ?? the saphenofemoral ??junction. There is no extension of thrombus into ?? the deep system. ? US/US venous duplex LE LT ?? IMPRESSION: ?? 1. No evidence of DVT. ?? 2. Excellent appearance status post ablation of the left great ?? saphenous vein. ? Dictated By: ?Yoshi Spicer MD ? Signed By: ?<Electronically signed by Yoshi Spicer MD in OV> ? 10/13/238 ? DD/ 1500 ? TD/TT: ? Chain Tender: ? Procedure Note Milady, Karmen - 10/13/2023 [place] [address] Ultrasound Report Signed Patient: Azalia Wren LMR#: [id number] : 1990Acct:[id number] Age/Sex: 32 / FADM Date: 10/12/23 Loc: HO.US Attending Dr: Mookie Mcgovern MD Ordering Physician: Mookie Mcgovern MD Date of Service: 10/12/23 Procedure(s): US venous duplex LE Accession Number(s): [id number] cc: Annia Benedict; Mookie Mcgovern MD EXAMINATION: TRIPLEX SCANNING OF LEFT LOWER EXTREMITY; SUPERFICIAL ULTRASOUND WITH DOPPLER OF LEFT LOWER EXTREMITY CLINICAL INFORMATION: Status post Venaseal of the left great saphenous vein COMPARISON: 07/07/2023. TECHNIQUE: Color flow triplex imaging and compression Doppler were performed as well as superficial ultrasound with Doppler. FINDINGS: LEFT LOWER EXTREMITY DEEP VENOUS SYSTEM: Respiratory variation, normal compression and augmented flow are noted throughout the lower extremity. The visualized common femoral vein, femoral vein, profunda femoral vein, popliteal vein and the calf veins show no evidence of deep venous thrombosis. There is no evidence of Elias's cyst. SUPERFICIAL VENOUS SYSTEM: The great saphenous vein is occluded from the access site to 4.4 before the saphenofemoral junction. There is no extension of thrombus into the deep system. US/US venous duplex LE LT IMPRESSION: 1. No evidence of DVT. 2. Excellent appearance status post ablation of the left great saphenous vein. Dictated By: Yoshi Spicer MD Signed By: <Electronically signed by Yoshi Spicer MD in OV> 10/13/23 1648 DD/ 1500 TD/TT: Chain Tender: [facility] External Provider IMG US PROCEDURES Final Result documented in this encounter Visit Diagnoses Diagnosis Essential hypertension- Primary Unspecified essential hypertension documented in this encounter Care Teams Hearing And Speech Assistant Relationship Specialty Start Date End Date Annia Benedict MD [address] [place] [address] PCP - General Family Medicine 06/02/22 documented as of this encounter
[2024-11-02 18:38] LABS: Folate 16.8 ng/mL (> or = 4.0); Vitamin B12 412 pg/mL (200-900)
[2024-11-02 18:59] LABS: TSH reflex Free T4 0.59 uIU/mL (0.32-4.0); Vitamin D 25-OH Total 57.8 ng/mL (>30)
[2024-11-06 06:08] LABS: Methylmalonic Acid 118 nmol/L (55-335)
== END 2024-11-02 08:03 | disposition home or self-care (01) ==
LOC: HO.HKASLDS 08:02
PROVIDERS: PCP General Practice; Visit Provider Physician Assistant Medical
DX: R53.83 Other fatigue (principal); G47.9 Sleep disorder, unspecified; F09 Unspecified mental disorder due to known physiological condition
CPT/HCPCS: 36415; 82306; 82607; 82746; 83921; 84443

== ENCOUNTER 2024-11-18 10:17 | Outpatient (REF) | payer BC, SELFPAY ==
--- OUTSIDE RECORDS SUMMARY | 2024-11-18 11:08 | XMS_ITS | Encounter Summary ---
Author Organization [employer] Address [address] [place] [address] Care Team Providers Care Site Worker Name Role Phone Annia Benedict MD Primary Care Provider [phone] Encounter Details Date Type Department Care Team (Late st Contact Info) Description 11/15/2024 2:20 PM EST Office Visit [facility] [address] [place] [address] Miriam Prince MD [address] [place] [address] Viral URI (Primary Dx); Influenza A Social History Tobacco Use Types Packs/Day Years [...] the past 12 months, has t he [employer], gas, oil or water [employer] threatened to shut off services in your [...] Sign Reading Time Taken Comments Blood Pressure 159/88 11/15/2024 2:28 PM EST Pulse 83 11/15/2024 2:28 PM EST Temperature 36.3 ??C (97.4 ??F) 11/15/2024 2:28 PM ES T Respiratory Rate 18 11/15/2024 2:28 PM EST Oxygen Saturation 98% 11/15/2024 2:28 PM EST Inhaled Oxygen Concentration - - Weight 141 kg (311 lb 3.2 oz) 11/15/2024 2:28 PM EST Height - - Body Mass Index 53.42 09/30/2024 3:09 PM EST documented in this encounter Progress Notes * Miriam Prince MD - 11/15/2024 2:20 PM EST Subjective Patient ID: Azalia Mckinnon is a 33 y.o. female who presents for No chief complaint on file.. Flu Symptoms This is a new problem. The current episode started yesterday. The problem occurs constantly. The problem has been gradually worsening. Associated symptoms include congestion, headaches and myalgias. Pertinent negatives include no abdominal pain, anorexia, arthralgias, change in bowel habit, chest pain, chills, fatigue, fever, joint swelling, nausea, neck pain, numbness, rash, sore throat, swollenglands, urinary symptoms, vertigo, visual change, vomiting or weakness. She has tried acetaminophenfor the symptoms. The treatment provided no relief. Review of Systems Constitutional: Negative for chills, fatigue and fever. HENT: Positive for congestion. Negative for sore throat. Cardiovascular: Negative for chest pain. Gastrointestinal: Negative for abdominal pain, anorexia, change in bowel habit, nausea and vomiting. Musculoskeletal: Positive for myalgias. Negative for arthralgias, joint swelling and neck pain. Skin: Negative for rash. Neurological: Positive for headaches. Negative for vertigo, weakness and numbness. Objective Physical Exam Constitutional: Appearance: She is ill-appearing. HENT: Nose: Right Turbinates: Enlarged and swollen. Left Turbinates: Enlarged and swollen. Right Sinus: Frontal sinus tenderness present. Left Sinus: Frontal sinus tenderness present. Mouth/Throat: Pharynx: Posterior oropharyngeal erythema and postnasal drip present. Assessment/Plan Diagnoses and all orders for this visit: Viral URI Comments: pt is neg for Covid Advised steam inhaltion and warm water gargles.Supportive trt with sudafed and warm tea Started on Zithromax for 5days Influenza A Comments: Started on Tamiflu Advised ibuprofen /Tylenol as needed Orders: - POCT Rapid COVID Ag - Influenza B (ID NOW Rapid Molecular) - Influenza A (ID NOW Rapid Molecular) Other orders - pseudoephedrine (Sudafed) 30 MG tablet; Take 1 tablet (30 mg) by mouth every 4 (four) hours if needed for congestion for up to 10 days. - azithromycin (Zithromax) 250 MG tablet; Take 2 tabs day and then 1 tab daily - oseltamivir (Tamiflu) 75 MG capsule; Take 1 capsule (75 mg) by mouth 2 times daily for 5 days. documented in this encounter Miscellaneous Notes * Addendum Note - Lyn Pinon MA - 11/15/2024 2:20 PM ESTAddended by: LYN PINON on: 11/15/2024 02:38 PM Modules accepted: Orders * Addendum Note - Miriam Prince MD - 11/15/2024 2:20 PM ESTAddended by: MIRIAM PRINCE on: 11/15/2024 02:38 PM Modules accepted: Orders * Addendum Note - Miriam Prince MD - 11/15/2024 2:20 PM ESTAddended by: MIRIAM PRINCE on: 11/15/2024 02:45 PM Modules accepted: Orders documented in this encounter Plan of Treatment Not on file documented as of this encounter Procedures Procedure Name Priority Date/Time Associated Diagnosis Comments POCT INFLUENZA B (ID NOW RAPID MOLECULAR) Routine 11/15/2024 2:37 PM EST Influenza A POCT INFLUENZA A (ID NOW RAPID MOLECULAR) Routine 11/15/2024 2:37 PM EST Influenza A POCT RAPID COVID ANTIGEN Routine 11/15/2024 2:37 PM EST Influenza A documented in this encounter Results * (ABNORMAL) Influenza A (ID NOW Rapid Molecular) (11/15/2024 2:37 PM EST) Influenza A Positive( A) Negative, Indeterminate [facility] Swab 11/15/2024 2:37 PM EST Miriam Prince MD POINT OF CARE TEST ENTER/EDIT OR DERABLES Final Result Performing Organization Address [facility] Co de Phone Number [facility] [address] [place] [phone] * Influenza B (ID NOW Rapid Molecular) (11/15/2024 2:37 PM EST) Influenza B Negative Negative, Indeterminate [facility] Swab 11/15/2024 2:37 PM EST us Miriam Prince MD POINT OF CARE TEST ENTER/EDIT OR DERABLES Final Result Performing Organization Address [facility]/ZIP Co de Phone Number [facility] [address] [place] [phone] * POCT Rapid COVID Ag (11/15/2024 2:37 PM EST) Rapid COVID Ag Negative [facility] Swab 11/15/2024 2:37 PM EST Miriam Prince MD POINT OF CARE TEST ENTER/EDIT OR DERABLES Final Result [facility] [address] [place] [phone] documented in this encounter Visit Diagnoses Diagnosis Viral URI- Primary Acute upper respiratory infections of unspecified site Influenza A Influenza with other respiratory manifestations documented in this encounter Care Teams Site Worker Relationship Specialty Start Date End Date Annia Benedict MD [address] [place] [phone] PCP - General Family Medicine 06/02/22 documented as of this encounter
--- OUTSIDE RECORDS SUMMARY | 2024-11-18 11:08 | XMS_ITS | Clinical Summary ---
Author Organization [employer] Address [address] [place] [address] 7t [place] [address] Care Team Providers Care Director Cpg Name Role Phone Annia Benedict MD Primary Care Provider [phone] Allergies Active Allergy Reactions Criticality Noted Date Comments Lurasidone 10/19/2017 Other reaction(s): Other (See Comments) Suicidal Other 07/02/2016 Medications Ventolin HFA 108 (90 Base) MCG/ACT inhaler INHALE 1 PUFF BY MOUTH EVERY 4 HOURS NEEDED 10/07/19 23 Active ARIPiprazole (Abilify) 10 MG tabletIndicati ons:Bipolar disorder in full remission, most recent episode unspecified type (CMS/HCC) 06/19/20 23 Active Azelastine HCl 137 MCG/SPRAY solution USE 2 SPRAYS IN EACH NOSTRIL TWICE A DAY FOR 10 DAYS 10/07/19 23 Active clonazePAM (KlonoPIN) 0.5 MG tabletIndicati ons:Bipolar disorder in full remission, most recent episode unspecified type (CMS/HCC) TAKE 1 TABLET BY MOUTH TWICE A DAY NEEDED ANXIETY, IRRITABILITY, INSOMNIA 05/03/20 23 Active lamoTRIgine (LaMICtal) 100 MG tabletIndicati ons:Bipolar disorder in full remission, most recent episode unspecified type (CMS/HCC) Take 1 tablet by mouth 3 times daily. 06/19/20 23 Active cholecalcifero l (Vitamin D-3) 50 MCG (1999) capsule Take 1 capsule (50 mcg) by mouth in the morning. 90 capsule 3 06/24/20 23 Active omeprazole (PriLOSEC) [address] capsule TAKE 1 CAPSULE (20 MG) BY MOUTH IN THE MORNING 90 capsule 3 06/13/20 24 Active Semaglutide-We ight Management (Wegovy) 0.25 MG/0.5ML solution auto-injectorI ndications:Sev ere obesity (CMS/HCC),Esse ntial hypertension,P re-conception counseling Inject 0.25 mg under the skin 1 (one) time per week. 0.5 mL 11 07/18/20 24 Active NIFEdipine XL (Procardia XL) 30 MG 24 hr tablet Take 1 tablet (30 mg) by mouth Once per day. Do not crush, chew, or split. 90 tablet 3 09/30/20 24 025 Active oseltamivir (Tamiflu) 75 MG capsule Take 1 capsule (75 mg) by mouth 2 times daily for 5 days. 10 capsule 11/15/19 25 025 Active azithromycin (Zithromax) 250 MG tablet Take 2 tabs day and then 1 tab daily 6 tablet 11/15/19 25 Active pseudoephedrin e (Sudafed) 30 MG tablet Take 1 tablet (30 mg) by mouth every 4 (four) hours if needed for congestion for up to 10 days. 30 tablet 11/15/19 25 025 Active pseudoephedrin e (Sudafed) 30 MG tablet Take 1 tablet (30 mg) by mouth every 4 (four) hours if needed for congestion for up to 10 days. 30 tablet 11/15/19 25 025 Discontinued(Re order (will not trigger notification to Pharmacy)) azithromycin (Zithromax) 250 MG tablet Take 2 tabs day and then 1 tab daily 6 tablet 11/15/19 25 025 Discontinued(Re order (will not trigger notification to Pharmacy)) Active Problems Problem Noted Date Diagnosed Date [...] Encounters Date Type Department Care Team Description 11/15/2024 2:20 PM EST Office Visit [facility] [address] [place] [address] Francoise Prince MD Viral URI (Primary Dx); Influenza A 11/02/2024 Orders Only GENERIC EXTERNAL DATA DEPARTMENT Provider, Generic External Data 10/31/2024 9:30 AM EST Clinical Support [facility] [address] [place] [address] Marie Story, RN Essential hypertension 10/31/2024 Travel 10/26/2024 Telephone [facility] [address] [place] [address] Patricia Ramirez MA Internal Referral 10/20/[address] [address] Teodora Bernal RN 09/30/2024 2:45 PM EST Office Visit [address] [address] Annia Benedict MD Essential hypertension (Primary Dx); History of elevated glucose; Neck mass; Obstructive sleep apnea; Screening for cervical cancer; Bipolar disorder in full remission, most recent episode unspecified type (CMS/HCC); Mild intermittent asthma without complication; Obstructive sleep apnea syndrome; Varicose veins of bilateral lower extremities with pain; Severe obesity (CMS/HCC) 09/30/2024 Travel 09/21/2024 Patient Outreach [address] [address] Annia Benedict MD Pre-visit Planning (SDOH screening negative and tobacco screening negative) from Last 3 Months Immunizations Name Administration [...] 3.2 oz) 11/15/2024 2:28 PM EST Height 162.6 cm (5' 4 ) 09/30/2024 3:09 PM EST Body Mass Index 53.42 09/30/2024 3:09 PM EST Plan of Treatment [...] Priority Date/Time Associated Diagnosis Comments POCT INFLUENZA A (ID NOW RAPID MOLECULAR) Routine 11/15/2024 2:37 PM EST Influenza A POCT INFLUENZA B (ID NOW RAPID MOLECULAR) Routine 11/15/2024 2:37 PM EST Influenza A POCT RAPID COVID ANTIGEN Routine 11/15/2024 2:37 PM EST Influenza A METHYLMALONIC ACID Routine 11/02/2024 9: 12 AM EST TSH W/REFLEX TO FT4 Routine 11/02/2024 9 :12 AM EST VITAMIN D,25-OH,TOTAL,IA Routine 11/02/2024 9:12 AM EST VITAMIN B12/FOLATE, SERUM PANEL Routine 11/02/2024 9:12 AM EST US HEAD NECK SOFT TISSUE Routine 10/19/2024 3:42 PM EST Neck mass POCT GLYCATED HEMOGLOBIN, TOTAL Routine 09/30/2024 3:59 PM EST History of elevated glucose LIPID PANEL, STANDARD Routine 06/24/2023 3:01 PM EDT History of elevated glucose from Last 3 Months or Most Recently Relevant to Health Maintenance Results * Influenza B (ID NOW Rapid Molecular) (11/15/2024 2:37 PM EST) [facility] Influenza B Negative Negative, Indeterminate [facility] Swab 11/15/2024 2:37 PM EST Francoise Prince MD POINT OF CARE TEST ENTER/EDIT OR DERABLES Final Result Performing Organization Address [facility] Co de Phone Number [facility] [address] [place] [phone] * (ABNORMAL) Influenza A (ID NOW Rapid Molecular) (11/15/2024 2:37 PM EST) [facility] Influenza A Positive( A) Negative, Indeterminate [facility] Swab 11/15/2024 2:37 PM EST Francoise Prince MD POINT OF CARE TEST ENTER/EDIT OR DERABLES Final Result Performing Organization Address [facility] Co de Phone Number [facility] [address] [place] [phone] * POCT Rapid COVID Ag (11/15/2024 2:37 PM EST) Pathologist [facility] Rapid COVID Ag Negative [facility] Swab 11/15/2024 2:37 PM EST us Francoise Prince MD POINT OF CARE TEST ENTER/EDIT OR DERABLES Final Result Performing Organization Address [facility] Co de Phone Number [facility] [address] [place] [phone] * Vitamin D, 25-Hydroxy, Total, Immunoassay (11/02/2024 9:12 AM EST) Vitamin D 25-OH Total 57.8 >30 ng/mL [facility] Comment:Health Based Referen ce Values*< 20 ng/mL Rqqhbvlfh43-53 ng/mL Insufficient> 30 ng/mL Sufficient*[place] JORDAN. N Engl J Med. 2007;357:266-280Care must be taken in interpreting Vitamin D results fromdifferent laboratories and methodologies. Published datademonstrated that results from patients undergoinghemodialysis may show a negative bias when tested withvarious automated 25-OH vitamin D assays when compared toLC-MS/MS.When testing samples from patients whose predominant form ofVitamin D is Vitamin D2, such as patients receiving VitaminD2 supplementation, results that are subtherapeutic shouldbe confirmed with another method such as LC-MS/MS. 11/02/2024 9:12 AM EST 11/02/2024 5:37 PM EST us Generic External Data Provider LAB BLOOD ORDERAB LES Final Result Performing Organization Address [facility] Co de Phone Number [facility] [address] [place] [phone] * Vitamin B12 (Cobalamin) and Folate Panel, Serum (11/02/2024 9:12 AM EST) Vitamin B12 412 200 - 900 pg/mL [facility] Comment:NORMAL 200-900 PG/ML INDETERMINATE 160-199 PG/ML DEFICIENT < 160 PG/ML Folate 16.8 > or = 4.0 ng/mL [facility] Comment:Reference Values:> o r = 4.0 ng/mL< 4.0 ng/mL suggests folate deficiency Methotrexate, aminopterin and folinic acid(leucovorin) are chemotherapeutic agents whose molecularstructures are similar to folate; therefore, the Architectfolate assay cannot be used for patients using these drugs. 11/02/2024 9:12 AM EST 11/02/2024 5:36 PM EST Generic External Data Provider LAB BLOOD ORDERAB LES Final Result Performing Organization Address [facility] Co de Phone Number [facility] [address] [place] [phone] * TSH with Reflex to Free T4 (11/02/2024 9:12 AM EST) TSH reflex Free T4 0.59 0.32 - 4.0 uIU/mL [facility] 11/02/2024 9:12 AM EST 11/02/2024 5:37 PM EST Generic External Data Provider LAB BLOOD ORDERAB LES Final Result Performing Organization Address [facility] de Phone Number [facility] [address] [place] [phone] * Methylmalonic Acid (11/02/2024 9:12 AM EST) Methylmalonic Acid 118 55 - 335 nmol/L [facility] Comment: Serum methylmalonic acid (MMA) levels are used todiagnose and monitor several rare inborn errors ofmetabolism, including methylmalonic aciduria. Theenzymatic conversion of MMA to succinic acid requiresvitamin B12 (adenosyl-cobalamin) as a cofactor. SerumMMA levels are also used for assessing functionalvitamin B12 deficiency. Vitamin B12 is essential forfetal neurodevelopment, particularly early inpregnancy. Undiagnosed maternal vitamin B12 deficiencymay be associated with adverse / outcomes,such as neural tube defects and intrauterine growthrestriction.[employer] utilized Multi-Modal Decomposition(MMD) analysis to establish first and second trimester-specific MMA reference intervals in , as givenbelow:MMA, First trimester (<13 wks gestation): 58-167 nmol/LMMA, Second trimester (13-23 wks gestation):63-241 nmol/LThis test was developed and its analytical performancecharacteristics have been determined by [employer]. It has not been cleared or approved by theA. This assay has been validated pursuant to the CLIAregulations and is used for clinical purposes.THIS TEST WAS PERFORMED AT:[employer]/[id number] [place], [place] ??[id number] W. MASON,MD,PHD 11/02/2024 9:12 AM EST 11/02/2024 5:37 PM EST us Generic External Data Provider LAB BLOOD ORDERAB LES Final Result [facility] [address] [place] [phone] * US Head Neck Soft Tissue (10/19/2024 3:42 PM EST) Anatomical Region Laterality Modality Head, Neck Ultrasound 10/19/2024 3:42 PM EST Narrative 10/20/2024 7:49 AM EST ? [facility] ?[address] ?[place] [address] ? Ultrasound Report ? Signed ? Patient: Azalia Wren ?MR#: [id number] ?? [id number] ? : 1990 ?Acct:[id number] ? Age/Sex: 33 / F ?ADM Date: 10/19/24 ? Loc: HO.US ? Attending Dr: Annia Benedict MD ? Ordering Physician: Annia Benedict ?? Date of Service: 10/19/24 ?? Procedure(s): US soft tiss head and/or neck ?? Accession Number(s): [id number] ? cc: Annia Benedict ? EXAMINATION: ?? [...] DD/ 1542 ? TD/TT: 10/19/24 1544 ? Registered Phlebotomist Part Time: ? Procedure Note Milady, Image - 10/20/2024 [place] [address] Ultrasound Report Signed Patient: Azalia Wren LMR#: [id number] : 1990Acct:[id number] Age/Sex: 33 / FADM Date: 10/19/24 Loc: HO.US Attending Dr: Annia Benedict MD Ordering Physician: Annia Benedict Date of Service: 10/19/24 Procedure(s): US soft tiss head and/or neck Accession Number(s): [id number] cc: Annia Benedict EXAMINATION: US HEAD AND [...] MDin OV> 10/20/24 0746 DD/ 1542 TD/TT: 10/19/24 154 Registered Phlebotomist Part Time: Annia Benedict MD IMG US PROCEDURES Edited Resul t - Final * POCT HGB A1C (09/30/2024 3:59 PM EST) Hemoglobin A1C 5.3 4.0 - 6.0 % QC Media Lot # [id number] Lot# Expiration Date [id number] Blood 09/30/2024 3:59 PM EST Annia Benedict MD POINT OF CARE TEST ENTER/EDIT ORDERABLES Final Result * (ABNORMAL) Lipid Panel, Standard (06/24/2023 3:01 PM EDT) Triglycerides 139 <150 mg/dL [facility] Comment:Desirable Triglyceri de: less than 150 mg/dLBorderline High Triglyceride 150-199 mg/dLHigh Triglyceride: 200-499 mg/dLVery High Triglyceride: greater than or equal to 5OO mg/dL Cholesterol 230(H) <200 mg/dL [facility] Comment:Desirable Cholestero l: less than 200 mg/dLBorderline High Cholesterol: 200-239 mg/dLHigh Cholesterol: greater than 239 mg/dL LDL Cholesterol Calculated 160(H) <100 mg/dL [facility] Comment:Desirable LDL: less than 100 mg/dLNear Optimal/Above Optimal LDL: 110- 129 mg/dLBorderline High LDL: 130-159 mg/dLHigh LDL: 160-189 mg/dLVery High LDL: greater than or equal to 190 mg/dL HDL Cholesterol 43 >40 mg/dL [facility] Comment:Desirable HDL: great er than 40 mg/dL Note: This HDL assay may give artificially low results in patients with liver disease. Blood Venous blood specimen / Unknown 06/24/2023 3:01 PM EDT 06/24/2023 4:11 PM EDT Annia Benedict MD LAB BLOOD ORDERABLES Final Res ult [facility] [address] [place] [phone] from Last 3 Months or Most Recently Relevant to Health Maintenance Insurance [facility] H[facility] Care Teams Director Cpg Relationship Specialty Start Date End Date Annia Benedict MD [address] [place] [address] PCP - General Family Medicine 06/02/22
--- OUTSIDE RECORDS SUMMARY | 2024-11-18 11:08 | XMS_ITS | Encounter Summary ---
Author Organization [employer] Address [address] 7[address] [place] [address] Care Team Providers Care Factory Maintenance Technician Name Role Phone Annia Benedict MD Primary Care Provider Reason for Visit * Reason Comments Med Change Request Encounter Details Date Type Department Care Team ([facility] st Contact Info) Description 07/18/2024 Refill [facility] [address] [place], [place] [phone] Annia Benedict MD [address] [place], [place] [phone] Severe obesity (CMS/HCC); Essential hypertension; Pre-conception counseling [...] with others, in a hotel, in a senior care, living outside on the street, on a [...] advice documented in this encounter Care Teams Factory Maintenance Technician Relationship Specialty Start Date End Date Annia Benedict MD [address] [place] [phone] PCP - General Family Medicine 06/02/22 documented as of this encounter
--- OUTSIDE RECORDS SUMMARY | 2024-11-18 11:08 | XMS_ITS | Encounter Summary ---
Author Organization [employer] Address [address] [place] [address] Care Team Providers Care Alternative Energy Engineer Name Role Phone Annia Benedict MD Primary Care Provider [phone] Encounter Details Date Type Department Care Team ([facility] Contact Info) Description 11/02/2024 Orders Only GENERIC EXTERNAL DATA DEPARTMENT Provider, Generic External Data Social History Tobacco Use Types Packs/Day Years [...] Procedure Name Priority Date/Time Associated Diagnosis Comments VITAMIN D,25-OH,TOTAL,IA Routine 11/02/2024 9:12 AM EST VITAMIN B12/FOLATE, SERUM PANEL Routine 11/02/2024 9:12 AM EST TSH W/REFLEX TO FT4 Routine 11/02/2024 9 :12 AM EST METHYLMALONIC ACID Routine 11/02/2024 9: 12 AM EST documented in this encounter Results * Methylmalonic Acid (11/02/2024 9:12 AM EST) Methylmalonic Acid 118 55 - 335 nmol/L [facility] Comment: Serum methylmalonic acid (MMA) levels [...] outcomes,such as neural tube defects and intrauterine growthrestriction.[employer] utilized Multi-Modal Decomposition(MMD) analysis to establish first and second trimester-specific MMA reference intervals in , as givenbelow:MMA, First trimester (<13 wks gestation): 58-167 nmol/LMMA, Second trimester (13-23 wks gestation):63-241 nmol/LThis test was developed and its analytical performancecharacteristics have been determined by [employer]. It has not been cleared or approved by theFDA. This assay has been validated pursuant to the CLIAregulations and is used for clinical purposes.THIS TEST WAS PERFORMED AT:[employer]/[id number] [place], [place] ??[id number] YE MD,PHD 11/02/2024 9:12 AM EST 11/02/2024 5:37 PM EST Generic External Data Provider LAB BLOOD ORDERAB LES Final Result Performing Organization Address City/[facility]/ZIP Co de Phone Number [facility] [address] [place] [phone] * TSH with Reflex to Free T4 (11/02/2024 9:12 AM EST) TSH reflex Free T4 0.59 0.32 - 4.0 uIU/mL [facility] 11/02/2024 9:12 AM EST 11/02/2024 5:37 PM EST us Generic External Data Provider LAB BLOOD ORDERAB LES Final Result Performing Organization Address [facility] Co de Phone Number [facility] [address] [place] [phone] * Vitamin D, 25-Hydroxy, Total, Immunoassay (11/02/2024 9:12 AM EST) Vitamin D 25-OH Total 57.8 >30 ng/mL [facility] Comment:Health Based Referen ce Values*< 20 ng/mL Mazqqjnxz34-26 ng/mL Insufficient> 30 ng/mL Sufficient*[place] JORDAN. N [...] ORDERAB LES Final Result Performing Organization Address [facility] Co de Phone Number [facility] [address] [place] [phone] * Vitamin B12 (Cobalamin) and Folate Panel, Serum (11/02/2024 9:12 AM EST) Vitamin B12 412 200 - 900 pg/mL [facility] Comment:NORMAL 200-900 PG/ML INDETERMINATE 160-199 PG/ML DEFICIENT < 160 PG/ML Folate 16.8 > or = 4.0 ng/mL [facility] Comment:Reference Values:> o r = 4.0 ng/mL< 4.0 ng/mL suggests folate deficiency Methotrexate, aminopterin and folinic acid(leucovorin) are chemotherapeutic agents whose molecularstructures are similar to folate; therefore, the Architectfolate assay cannot be used for patients using these drugs. 11/02/2024 9:12 AM EST 11/02/2024 5:36 PM EST [employer] External Data Provider LAB BLOOD ORDERAB LES Final Result Performing Organization Address [facility] de Phone Number [facility] [address] [place] [phone] documented in this encounter Visit Diagnoses Not on filedocumented in this encounter Care Teams Alternative Energy Engineer Relationship Specialty Start Date End Date Annia Benedict MD [address] [place] [phone] PCP - General Family Medicine 06/02/22 documented as of this encounter
--- OUTSIDE RECORDS SUMMARY | 2024-11-18 11:08 | XMS_ITS | Encounter Summary ---
Author Organization [employer] Address [address] [place] [address] Care Team Providers Care Derrick Boat Operator Name Role Phone Annia Benedict MD Primary Care Provider [phone] Reason for Visit * Reason Onset Date Comments Internal Referral 10/26/2024 Encounter Details Date Type Department Care Team ([facility] st Contact Info) Description 10/26/2024 Telephone [facility] [address] [place], [place] [phone] Patricia Ramirez MA Internal Referral Social History [...] on filedocumented in this encounter Care Teams Derrick Boat Operator Relationship Specialty Start Date End Date Annia Benedict MD [address] [place] [phone] PCP - General Family Medicine 06/02/22 documented as of this encounter
--- OUTSIDE RECORDS SUMMARY | 2024-11-18 11:08 | XMS_ITS | Encounter Summary ---
Author Organization [employer] Address [address] [place] [address] Care Team Providers Care Multimedia Instructional Designer Name Role Phone Annia Benedict MD Primary Care Provider [phone] Encounter Details Date Type Department Care Team (Late st Contact Info) Description 09/21/2023 Orders Only [facility] [address] [place], [place] [phone] Annia Benedict MD [address] [place], [place] [phone] Essential hypertension (Primary Dx) Social History Tobacco [...] with others, in a hotel, in a [place], living outside on the street, on a [...] EST Narrative 10/13/2023 4:51 PM EST ? [facility] ?[address] ?[place] [address] ? Ultrasound Report ? Signed ? Patient: Azalia Wren ?MR#: [id number] ?? [id number] ? : 1990 ?Acct:[id number] ? Age/Sex: 32 / F ?ADM Date: 10/12/23 ? Loc: HO.US ? Attending Dr: Mookie Mcgovern MD ? Ordering Physician: Mookie Mcgovern MD ?? Date of Service: 10/12/23 ?? Procedure(s): US venous duplex LE LT ?? Accession Number(s): [id number] ? cc: Annia Benedict; Mookie Mcgovern MD [...] 10/13/238 ? DD/ 1500 ? TD/TT: ? Commission Sales Associate: ? Procedure Note Milady, Karmen - 10/13/2023 [place] [address] Ultrasound Report Signed Patient: Azalia Wren LMR#: [id number] : 1990Acct:[id number] Age/Sex: 32 / FADM Date: 10/12/23 Loc: HO.US Attending Dr: Mookie Mcgovern MD Ordering Physician: Mookie Mcgovern MD Date of Service: 10/12/23 Procedure(s): US venous duplex LE Accession Number(s): [id number] cc: Annia Benedict; Mookie Mcgovern MD EXAMINATION: [...] in OV> 10/13/23 1648 DD/ 1500 TD/TT: Commission Sales Associate: [facility] External Provider IMG US PROCEDURES Final Result documented in this encounter Visit Diagnoses Diagnosis Essential hypertension- Primary Unspecified essential hypertension documented in this encounter Care Teams Multimedia Instructional Designer Relationship Specialty Start Date End Date Annia Benedict MD [address] [place] [address] PCP - General Family Medicine 06/02/22 documented as of this encounter
--- OUTSIDE RECORDS SUMMARY | 2024-11-18 11:08 | XMS_ITS | Encounter Summary ---
Author Organization [employer] Address [address] [place] [address] Care Team Providers Care Collections Manager Name Role Phone Annia Benedict MD Primary Care Provider [phone] Reason for Visit * Reason Comments Blood Pressure Check Encounter Details Date Type Department Care Team (Latest Contact Info) Description 10/31/2024 9:30 AM EST Clinical Support [facility] [address] [place], [place] [phone] Marie Story, RN [address] [place], [place] [phone] Essential hypertension Social History Tobacco Use Types [...] hypertension documented in this encounter Care Teams Collections Manager Relationship Specialty Start Date End Date Annia Benedict MD [address] [place] [address] PCP - General Family Medicine 06/02/22 documented as of this encounter
--- OUTSIDE RECORDS SUMMARY | 2024-11-18 11:08 | XMS_ITS | Encounter Summary ---
Author Organization [employer] Address [address] [place] [address] Care Team Providers Care Languages And Literature Instructor Name Role Phone Annia Benedict MD Primary Care Provider [phone] Encounter Details Date Type Department Care Team [...] on filedocumented in this encounter Care Teams Languages And Literature Instructor Relationship Specialty Start Date End Date Annia Benedict MD [address] [place] [phone] PCP - General Family Medicine 06/02/22 documented as of this encounter
--- OUTSIDE RECORDS SUMMARY | 2024-11-18 11:08 | XMS_ITS | Encounter Summary ---
Author Organization [employer] Address [address] [facility] [address] 7t [place] [address] Care Team Providers Care Property Investor Name Role Phone Annia Benedict MD Primary Care Provider [phone] Encounter Details Date Type Department Care Team (Late st Contact Info) Description 10/20/2024 Telephone [facility]INE 230 [place], [place] [phone] Teodora Bernal, RN 230 [place], [place] [phone] Social History Tobacco Use Types Packs/Day Years [...] on filedocumented in this encounter Care Teams Property Investor Relationship Specialty Start Date End Date Annia Benedict MD [address] [place] [phone] PCP - General Family Medicine 06/02/22 documented as of this encounter
[2024-11-21 15:44] LABS: Homocysteine 6.9 umol/L (<10.4)
== END 2024-11-18 10:18 | disposition home or self-care (01) ==
LOC: HO.LAB 10:17
PROVIDERS: PCP General Practice; Visit Provider Physician Assistant Medical
DX: G47.9 Sleep disorder, unspecified (principal); R53.83 Other fatigue
CPT/HCPCS: 36415; 83090

== ENCOUNTER → 2025-01-02 14:48 | Outpatient (REF) | payer BC, SELFPAY ==
--- OUTSIDE RECORDS SUMMARY | 2025-01-02 16:44 | XMS_ITS | Encounter Summary ---
Author Organization [employer] Address [address] [facility] [address] 7t [place] [address] Care Team Providers Care Higher Level Teaching Assistant Name Role Phone Annia Benedict MD Primary Care Provider [phone] Encounter Details Date Type Department Care Team (Late st Contact Info) Description 09/21/2023 Orders Only [facility]INE 230 [place], [place] [phone] Annia Benedict MD 230 [place], [place] [phone] Essential hypertension (Primary Dx) Social History Tobacco [...] with others, in a hotel, in a halfway, living outside on the street, on a [...] EST Narrative 10/13/2023 4:51 PM EST ? [facility] ?[address] ?[place] [address] ? Ultrasound Report ? Signed ? Patient: Azalia Wren ?MR#: [id number] ?? [id number] ? : 1990 ?Acct:[id number] ? Age/Sex: 32 / F ?ADM Date: 10/12/23 ? Loc: HO.US ? Attending Dr: Mookie Mcgovern MD ? Ordering Physician: Mookie Mcgovern MD ?? Date of Service: 10/12/23 ?? Procedure(s): US venous duplex LE LT ?? Accession Number(s): [id number] ? cc: Annia Benedict; Mookie Mcgovern MD [...] 10/13/238 ? DD/ 1500 ? TD/TT: ? Spool Cleaner: ? Procedure Note Milady, Karmen - 10/13/2023 [place] [address] Ultrasound Report Signed Patient: Azalia Wren LMR#: [id number] : 1990Acct:[id number] Age/Sex: 32 / FADM Date: 10/12/23 Loc: HO.US Attending Dr: Mookie Mcgovern MD Ordering Physician: Mookie Mcgovern MD Date of Service: 10/12/23 Procedure(s): US venous duplex LE Accession Number(s): [id number] cc: Annia Benedict; Mookie Mcgovern MD EXAMINATION: [...] in OV> 10/13/23 1648 DD/ 1500 TD/TT: Spool Cleaner: [facility] External Provider IMG US PROCEDURES Final Result documented in this encounter Visit Diagnoses Diagnosis Essential hypertension- Primary Unspecified essential hypertension documented in this encounter Care Teams Higher Level Teaching Assistant Relationship Specialty Start Date End Date Annia Benedict MD 230 [place] [address] PCP - General Family Medicine 06/02/22 documented as of this encounter
--- OUTSIDE RECORDS SUMMARY | 2025-01-02 16:44 | XMS_ITS | Encounter Summary ---
Author Organization [employer] Address [address] [facility] [address] 7t [place] [address] Care Team Providers Care Saxophone Player Name Role Phone Annia Benedict MD Primary Care Provider [phone] Reason for Visit * Reason Comments Med Refill Encounter Details Date Type Department Care Team ([facility] st Contact Info) Description 12/15/2024 Refill [facility] MEDICINE 230 [place], [place] [phone] Annia Benedict MD 230 [place], [place] [phone] Social History Tobacco Use Types Packs/Day Years [...] on filedocumented in this encounter Care Teams Saxophone Player Relationship Specialty Start Date End Date Annia Benedict MD [address] [place] [address] PCP - General Family Medicine 06/02/22 documented as of this encounter
--- OUTSIDE RECORDS SUMMARY | 2025-01-02 16:44 | XMS_ITS | Encounter Summary ---
Author Organization [employer] Address [address] [facility] [address] 7t [place] [address] Care Team Providers Care Accounting Lecturer Name Role Phone Annia Benedict MD Primary Care Provider [phone] Reason for Visit * Reason Comments Med Change Request Encounter Details Date Type Department Care Team ([facility] st Contact Info) Description 07/18/2024 Refill [facility] MED[facility]INE 230 [place], [place] [phone] Annia Benedict MD 230 [place], [place] [phone] Severe obesity (CMS/HCC); Essential hypertension; Pre-conception counseling [...] with others, in a hotel, in a [facility], living outside on the street, on a [...] advice documented in this encounter Care Teams Accounting Lecturer Relationship Specialty Start Date End Date Annia Benedict MD [address] [place] [address] PCP - General Family Medicine 06/02/22 documented as of this encounter
--- OUTSIDE RECORDS SUMMARY | 2025-01-02 16:44 | XMS_ITS | Clinical Summary ---
Author Organization [employer] Address [address] [place] [address] 7t [place] [address] Care Team Providers Care Inclusion Manager Name Role Phone Annia Benedict MD Primary Care Provider [phone] Allergies Active Allergy Reactions Criticality Noted Date [...] (one) time per week. 0.5 mL 11 4 Active NIFEdipine XL (Procardia XL) 30 MG 24 hr tablet Take 1 tablet (30 mg) by mouth Once per day. Do not crush, chew, or split. 90 tablet 3 4 09/30/20 25 Active azithromycin (Zithromax) 250 MG tablet Take 2 tabs day and then 1 tab daily 6 tablet 5 Active pseudoephedrine (Sudafed) 30 MG tablet Take 1 tablet (30 mg) by mouth every 4 (four) hours if needed for congestion for up to 10 days. 30 tablet 5 Active Active Problems Problem Noted Date Diagnosed [...] Encounters Date Type Department Care Team Description 12/15/2024 Refill [facility] [address] [place] [address] Annia Benedict MD 11/18/2024 Orders Only GENERIC EXTERNAL DATA DEPARTMENT Provider, Generic External Data 11/15/2024 2:20 PM EST Office Visit [facility] [address] [place] [address] Francoise Prince MD Viral URI (Primary Dx); Influenza A 11/02/2024 Orders Only GENERIC EXTERNAL DATA DEPARTMENT Provider, Generic External Data 10/31/2024 9:30 AM EST Clinical Support [facility] [address] [place] [address] Mraie Story, JOSE Essential hypertension 10/31/2024 Travel 10/26/2024 Telephone [facility] [address] [place] [address] Patricia Ramirez MA Internal Referral 10/20/2024 Telephone [facility] [address] [place] [address] Teodora Bernal, JOSE from Last 3 Months Immunizations Name Administration [...] (PISQ) 2003 Hepatitis C Screening 2006 Hepatitis B Vaccines (1 of 3 - [...] on patient's age to complete this topic Hepatitis A Vaccines Aged Out No long er eligible based on patient's age to complete [...] Procedure Name Priority Date/Time Associated Diagnosis Comments HOMOCYSTEINE Routine 11/18/2024 10:30 AM EST POCT INFLUENZA A (ID NOW RAPID MOLECULAR) [...] Routine 10/19/2024 3:42 PM EST Neck mass LIPID PANEL, STANDARD Routine 06/24/2023 3:01 PM EDT History of elevated glucose from Last 3 Months or Most Recently Relevant to Health Maintenance Results * Homocysteine (11/18/2024 10:30 AM EST) Homocysteine 6.9 <10.4 umol/L [facility] Comment:Homocysteine is incr eased by functional deficiency offolate or vitamin B12. Testing for methylmalonic aciddifferentiates between these deficiencies. Other causesof increased homocysteine include renal failure, folateantagonists such as methotrexate and phenytoin, andexposure to nitrous oxide.Adiel Hood et al., [employer] Building Insulation Supervisor Med. 1999;131(5):331-9.THIS TEST WAS PERFORMED AT:[employer] [place] [id number] MOON MD 11/18/2024 10:3 0 AM EST 11/18/2024 10:30 AM EST us Generic External Data Provider LAB BLOOD ORDERAB LES Final Result Performing Organization Address [facility]/ZIP Co de Phone Number [facility] [address] [place] [phone] * Influenza B (ID NOW Rapid Molecular) (11/15/2024 2:37 PM EST) Influenza B Negative Negative, Indeterminate [facility] Swab 11/15/2024 2:37 PM EST us Francoise Prince MD POINT OF CARE TEST ENTER/EDIT OR DERABLES Final Result Performing Organization Address [facility] Co de Phone Number [facility] [address] [place] [phone] * (ABNORMAL) Influenza A (ID NOW Rapid Molecular) (11/15/2024 2:37 PM EST) Influenza A Positive( A) Negative, Indeterminate [facility] Swab 11/15/2024 2:37 PM EST us Francoise Prince MD POINT OF CARE TEST ENTER/EDIT OR DERABLES Final Result Performing Organization Address City/[facility] Co de Phone Number [facility] [address] [place] [phone] * POCT Rapid COVID Ag (11/15/2024 2:37 PM EST) Rapid COVID Ag Negative [facility] Swab 11/15/2024 2:37 PM EST Francoise Prince MD POINT OF CARE TEST ENTER/EDIT OR DERABLES Final Result Performing Organization Address City/[facility]/ZIP Co de Phone Number [facility] [address] [place] [phone] * Vitamin D, 25-Hydroxy, Total, Immunoassay (11/02/2024 9:12 AM EST) Vitamin D 25-OH Total 57.8 >30 ng/mL [facility] Comment:Health Based Referen ce Values*< 20 ng/mL [id number] ng/mL Insufficient> 30 ng/mL Sufficient*[place] JORDAN. N [...] Provider LAB BLOOD ORDERAB LES Final Result [facility] [address] [place] [phone] * Vitamin B12 (Cobalamin) and Folate Panel, Serum (11/02/2024 9:12 AM EST) Vitamin B12 412 200 - 900 pg/mL [facility] Comment:NORMAL 200-900 PG/ML INDETERMINATE 160-199 PG/ML DEFICIENT < 160 PG/ML Folate 16.8 > or = 4.0 ng/mL [facility] Comment:Reference Values:> o r = 4.0 ng/mL< 4.0 ng/mL suggests folate deficiency Methotrexate, aminopterin and folinic acid(leucovorin) are chemotherapeutic agents whose molecularstructures are similar to folate; therefore, the Architectfolate assay cannot be used for patients using these drugs. 11/02/2024 9:12 AM EST 11/02/2024 5:36 PM EST us Generic External Data Provider LAB BLOOD ORDERAB LES Final Result Performing Organization Address City/[facility]/ZIP Co de Phone Number [facility] [address] [place] [phone] * TSH with Reflex to Free T4 (11/02/2024 9:12 AM EST) TSH reflex Free T4 0.59 0.32 - 4.0 uIU/mL [facility] 11/02/2024 9:12 AM EST 11/02/2024 5:37 PM EST Generic External Data Provider LAB BLOOD ORDERAB LES Final Result Performing Organization Address [facility] Co de Phone Number [facility] [address] [place] [phone] * Methylmalonic Acid (11/02/2024 9:12 AM EST) Methylmalonic Acid 118 55 - 335 nmol/L [facility] Comment: Serum methylmalonic acid (MMA) levels [...] outcomes,such as neural tube defects and intrauterine growthrestriction.[employer] utilized Multi-Modal Decomposition(MMD) analysis to establish first and second trimester-specific MMA reference intervals in , as givenbelow:MMA, First trimester (<13 wks gestation): 58-167 nmol/LMMA, Second trimester (13-23 wks gestation):63-241 nmol/LThis test was developed and its analytical performancecharacteristics have been determined by [employer]. It has not been cleared or approved by theFDA. This assay has been validated pursuant to the CLIAregulations and is used for clinical purposes.THIS TEST WAS PERFORMED AT:[employer]/[id number] [place], [place] ??[id number] YE MD,PHD 11/02/2024 9:12 AM EST 11/02/2024 5:37 PM EST us Generic External Data Provider LAB BLOOD ORDERAB LES Final Result [facility] [address] [place] [phone] * US Head Neck Soft Tissue (10/19/2024 3:42 PM EST) Anatomical Region Laterality Modality Head, Neck Ultrasound 10/19/2024 3:42 PM EST Narrative 10/20/2024 7:49 AM EST ? [facility] ?[address] ?[place] [address] ? Ultrasound Report ? Signed ? Patient: Azalia Wren L ?MR#: [id number] ?? [id number] ? : 1990 ?Acct:[id number] ? Age/Sex: 33 / F ?ADM Date: 10/19/24 ? Loc: HO.US ? Attending Dr: Annia Benedict MD ? Ordering Physician: Annia Benedict ?? Date of Service: 10/19/24 ?? Procedure(s): US soft tiss head and/or neck ?? Accession Number(s): [id number] ? cc: Annia Benedict ? EXAMINATION: ?? [...] DD/ 1542 ? TD/TT: 10/19/24 1544 ? Nonprofit Fundraiser: ? Procedure Note Donotjulio cesarinterpreter, Image - 10/20/2024 [place] [address] Ultrasound Report Signed Patient: Azalia Wren LMR#: [id number] : 1990Acct:[id number] Age/Sex: 33 / FADM Date: 10/19/24 Loc: HO.US Attending Dr: Annia Benedict MD Ordering Physician: Annia Benedict Date of Service: 10/19/24 Procedure(s): US soft tiss head and/or neck Accession Number(s): [id number] cc: Annia Benedict EXAMINATION: US HEAD AND [...] OV> 10/20/24 0746 DD/ 1542 TD/TT: 10/19/24 1544 Nonprofit Fundraiser: Annia Benedict MD IMG US PROCEDURES Edited Resul t - Final * (ABNORMAL) Lipid Panel, Standard (06/24/2023 3:01 PM EDT) Triglycerides 139 <150 mg/dL [facility] Comment:Desirable Triglyceri de: less than 150 mg/dLBorderline High Triglyceride 150-199 mg/dLHigh Triglyceride: 200-499 mg/dLVery High Triglyceride: greater than or equal to 5OO mg/dL Cholesterol 230(H) <200 mg/dL [facility] Comment:Desirable Cholestero l: less than 200 mg/dLBorderline High Cholesterol: 200-239 mg/dLHigh Cholesterol: greater than 239 mg/dL LDL Cholesterol Calculated 160(H) <100 mg/dL [facility] Comment:Desirable LDL: less than 100 mg/dLNear Optimal/Above Optimal LDL: 110- 129 mg/dLBorderline High LDL: 130-159 mg/dLHigh LDL: 160-189 mg/dLVery High LDL: greater than or equal to 190 mg/dL HDL Cholesterol 43 >40 mg/dL [facility] Comment:Desirable HDL: great er than 40 mg/dL Note: This HDL assay may give artificially low results in patients with liver disease. Blood Venous blood specimen / Unknown 06/24/2023 3:01 PM EDT 06/24/2023 4:11 PM EDT Annia Benedict MD LAB BLOOD ORDERABLES Final Res ult [facility] [address] [place] [phone] from Last 3 Months or Most Recently Relevant to Health Maintenance Insurance [address] [place] [address] [place] [address] BCBS HMO * Guarantor: Mckinnon Azalia Rodrigues Account Type Relation to Patient Date of Phone Billing Address Personal/Family [address] [address] Care Teams Inclusion Manager Relationship Specialty Start Date End Date Annia Benedict MD [address] [place] [phone] PCP - General Family Medicine 06/02/22
== END ==
LOC: HO.SL 14:48
PROVIDERS: PCP General Practice; Visit Provider Physician Assistant Medical
DX: R53.83 Other fatigue (principal); G47.9 Sleep disorder, unspecified; R06.83 Snoring; R40.0 Somnolence
CPT/HCPCS: 95806

== ENCOUNTER → 2025-01-02 15:07 | Outpatient (BNV) | payer BC, SELFPAY | PROVIDERS: PCP General Practice; Visit Provider Psychiatry & Neurology Neurology | DX: R06.83 Snoring (principal); G47.10 Hypersomnia, unspecified | CPT/HCPCS: 95806 ==

== ENCOUNTER → 2025-02-26 20:30 | Outpatient (REF) | payer BC, SELFPAY | LOC: HO.SL 20:30 | PROVIDERS: PCP General Practice; Visit Provider Physician Assistant Medical | DX: G47.30 Sleep apnea, unspecified (principal); G47.10 Hypersomnia, unspecified | CPT/HCPCS: 95810 ==

== ENCOUNTER → 2025-02-26 21:40 | Outpatient (BNV) | payer BC, SELFPAY | PROVIDERS: PCP General Practice; Visit Provider Psychiatry & Neurology Neurology | DX: R06.83 Snoring (principal) | CPT/HCPCS: 95810 ==

== ENCOUNTER 2025-04-26 07:53 | Outpatient (AMB) | payer BC, SELFPAY ==
--- OUTSIDE RECORDS SUMMARY | 2025-04-26 07:56 | XMS_ITS | Encounter Summary ---
Author Organization [employer] Address [address] [facility] [address] 7t [place] [address] Care Team Providers Care Freight Caller Name Role Phone Annia Benedict MD Primary Care Provider [phone] Encounter Details Date Type Department Care Team (Late st Contact Info) Description 01/30/2025 Orders Only [facility] 230 [place], [place] [phone] Anne Marie Lerma NP [address] [place], [place] [phone] Social History Tobacco Use Types Packs/Day Years [...] as of this encounter Plan of Treatment Upcoming Encounters Date Type Department Care Team (Late st Contact Info) Description 04/26/2025 3:15 PM EDT Office Visit [facility] [address] [place] [address] [phone] Annia Benedict MD [address] [place] [phone] documented as of this encounter Visit Diagnoses Not on filedocumented in this encounter Care Teams Freight Caller Relationship Specialty Start Date End Date Annia Benedict MD [address] [place] [address] PCP - General Family Medicine 06/02/22 documented as of this encounter
--- NOTE | 2025-04-26 08:00 | MHC.OFFVIS ---
Vital Signs 04/26/25 08:01 Height 5 ft 4 in Weight 301 lb 2 oz BMI 51.7 Pulse 85 Pulse Source Pulse Oximeter Pulse Oximetry (%) 96 Oxygen Delivery Method Room Air Intake Visit Reasons: 3 mnth f/u Intake Note: Patient presents follow up Sleep. Labs/PSG in chart(AHI-<1, EMI-88%). Accompanied by: Self / Same As Patient Allergies lurasidone (From Latuda) Allergy (Unknown, Verified 04/26/25 08:06) self harm HPI Comments Details: 33 year old female [place] ortega, referred to us for sleep evaluation, per PCP. 04/2025 PSG reviewed with pt. AHI is less than 1 and O2 Nadirs to 89%. She continues to snore loudly. H/O asthma and inhaler use daily. In 2016 she had Bariatric sleeve surgery and lost 100lbs. Her BMI is 52 and has gained about 50lbs since. She is trying to conceive and feels refreshed in the morning with the use of cpap. 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 She wants to continue with cpap use as it eliminates her snoring 100% and her says she sleeps soundly. She has headaches 2-3x a month and tolerable without meds. Her mood is stable no episodes of BP behavior. She sees her therapist once a month and takes lamotrigine 100mg TID, Abilify 10mg daily, and klonipin 0.5mg po prn, she is trying to taper slowly Klonipin due to impending IVF for . Denies restless leg syndrome. Memory is good at baseline. Diet and lifestyle could improve and is trying to see weight management again as she is trying to conceive. [facility] Medical History DJD (degenerative joint disease) Hypertension Sleep apnea treated with continuous positive airway pressure (CPAP) Anxiety Morbid obesity Obese GERD (gastroesophageal reflux disease) Bipolar disorder Asthma Surgical History S/P gastric sleeve procedure Status post ablation of incompetent vein using laser (10/09/23) Family History Mother Bipolar 1 disorder Father Type 2 diabetes mellitus Social History Patient Tobacco Use Status: Former Tobacco user Cigarettes Per Day: 1 Physical Exam Vital Signs: Last Vital Signs Pulse 85 04/26/25 08:01 Pulse Ox 96 04/26/25 08:01 Oxygen Delivery Method Room Air 04/26/25 08:01 BMI result Body Mass Index 51.7 Const General: cooperative, comfortable and no acute distress Nutritional Appearance: obese (BMI is 52) Orientation/consciousness: patient oriented x3 HEENT Head: Yes normal to inspection Face and sinus: Yes normal facial exam and Yes face symmetric Throat: Yes other (Mallmpti score of 4) Eyes Pupils: Equal, round and reactive pupils present Neck Neck: Yes full ROM Resp Effort & Inspection: normal respiratory effort and able to speak in complete sentences Neuro General: patient oriented x3 and moves all extremities Cranial nerves: Yes CN's II-XII intact bilaterally, Yes Facial sensation intact/muscles of mastication intact, Yes Equal, round and reactive pupils present, Yes Normal accommodation reflex present, Yes Bilaterally intact EOM present, Yes Nystagmus not present, Yes Normal facial strength present, Yes Midline tongue present, Yes Ability to bilaterally rotate head present and Yes Ability to bilaterally elevate shoulders present Cognition (Neuro): normal cognition Gait exam (Neuro): Normal gait present Motor exam (neuro): 5/5 motor strength present throughout and Normal motor muscle tone present throughout Psych Appearance: grossly normal Mental Status: mental status grossly normal Affect: normal affect Attitude: cooperative Thought process: Normal thought process present Thought content: Normal thought content present Insight: Good insight present (Psych) Judgement: Good judgement present (Psych) Results Reviewed Results Reviewed: Will f/u for cpap. Assessment & Plan Assessment & Plan (1) Sleep apnea treated with continuous positive airway pressure (CPAP): Comment: she says she has a cpap and wants to continue using it. Code(s): G47.30 - Sleep apnea, unspecified Category: Medical (2) Loud snoring: Code(s): R06.83 - Snoring Category: Medical (3) Bipolar disorder: Code(s): F31.9 - Bipolar disorder, unspecified Category: Medical Qualifiers: Active/Remission status: in remission of unspecified degree Qualified Code(s): F31.70 - Bipolar disorder, currently in remission, most recent episode unspecified Plan Continue cpap use, as patient has improved move and decreased fatigue when using her cpap. BMI is elevated to 52 and H/o gastric sleeve and lost 100lbs. Mood Bipolar continue meds Lamotrigine 150mg po qhs TID, Klonipin 0.5mg po prn, Abilify 20mg po qhs. F/u in 6 months for compliance or sooner if need to. Patient Instructions: Sleep Hygiene provided: set a scheduled bedtime and wake time to help regulate the circadian rhythm and balance the release of pituitary hormones. Sleep in a dark room, temperatures below 68 degrees, and no devices n bed. Limit caffeinated products 6 hours prior to bed, and limit fluids 2-4 hours prior to bed. Gentle night yoga, diffusing essential oils, and playing soft music can be relaxing. Wash mask, hoses, fill reservoir with water and request supplies from [facility] or your current sleep company as need. Taper off Clonazepam slowly and safely with your psychiatrist, follow up with therapist once a week while tapering. Download the CBTI heather for mood fluctuations. Walking, swimming, biking is recommended daily as tolerable. Coding Level of Care Code Est Pt Level 4 (40794) Diagnoses Sleep apnea treated with continuous positive airway pressure (CPAP) G47.30 Loud snoring R06.83 Bipolar affective disorder in remission F31.70 Active/Remission status: in remission of unspecified degree Time Spent (min) 20 Comment Cpap use
[2025-04-26 08:01] VITALS: PULSE 85; O2SAT 96; BMI 51.7
== END 2025-04-26 08:41 | disposition home or self-care (01) ==
LOC: HO.HSMS 07:54
PROVIDERS: PCP General Practice; Visit Provider Physician Assistant Medical
DX: G47.30 Sleep apnea, unspecified (principal); R06.83 Snoring; F31.70 Bipolar disorder, currently in remission, most recent episode unspecified
CPT/HCPCS: 99214

== ENCOUNTER 2025-04-29 10:11 | Outpatient (REF) | payer BC, SELFPAY ==
--- NOTE | ~2025-04-29 | XR_ITS ---
EXAMINATION: XR CHEST 2 VIEWS HISTORY: cough with fever COMPARISON: There are no prior studies available for comparison. FINDINGS: PA and lateral views of the chest are submitted. There is airspace opacity in the left upper lobe and lingula, consistent with pneumonia. The right lung is clear. There is no pleural effusion, pneumothorax, or pulmonary vascular congestion. The heart is normal in size. The bones are intact. XR/XR chest 2V IMPRESSION: Left upper lobe and lingular pneumonia. Follow-up is recommended to document resolution. Electronically signed by: Alberto Elam MD 05/01/2025 07:30 AM EDT
--- OUTSIDE RECORDS SUMMARY | 2025-04-29 10:13 | XMS_ITS | Encounter Summary ---
Author Organization [employer] Address [address] [facility] [address] [place] [address] Care Team Providers Care Log Buncher Name Role Phone Annia Benedict MD Primary Care Provider [phone] Encounter Details Date Type Department Care Team (Late st Contact Info) Description 01/30/2025 Orders Only [facility] 230 [place], [place] [phone] Anne Marie Lerma NP 230 [place], [place] [phone] Social History Tobacco Use Types Packs/Day Years [...] on filedocumented in this encounter Care Teams Log Buncher Relationship Specialty Start Date End Date Annia Benedict MD [address] [place] [phone] PCP - General Family Medicine 06/02/22 documented as of this encounter
== END 2025-04-29 10:12 | disposition home or self-care (01) ==
LOC: HO.XRAY 10:11
PROVIDERS: PCP General Practice; Visit Provider Family Medicine
DX: R05.1 Acute cough (principal); J06.9 Acute upper respiratory infection, unspecified; R50.9 Fever, unspecified
CPT/HCPCS: 71046

== ENCOUNTER → 2025-04-29 10:14 | Outpatient (BNV) | payer BC, SELFPAY | PROVIDERS: PCP General Practice; Visit Provider Radiology Diagnostic Radiology | DX: R05.9 Cough, unspecified (principal); J18.1 Lobar pneumonia, unspecified organism | CPT/HCPCS: 71046 ==